=== PATIENT | female | born 1965 | race Caucasian/White ===

== ENCOUNTER → 2017-11-29 18:03 | Outpatient (CLI) | payer OTHER, SELFPAY ==
[2017-12-03 15:42] LABS: HPV Reflexed? NOT INDICATED
== END ==
PROVIDERS: Visit Provider Obstetrics & Gynecology
DX: Z12.4 Encounter for screening for malignant neoplasm of cervix (principal); Z12.72 Encounter for screening for malignant neoplasm of vagina
CPT/HCPCS: 88175; G0145

== ENCOUNTER 2017-12-17 20:19 | Observation (INO) | payer OTHER, SELFPAY ==
[2017-12-17 20:21] VITALS: BP 91/56; PULSE 72; RESP 18; TEMP 36.6; O2SAT 94; BMI 26.6
--- NOTE | 2017-12-17 21:12 | EKG12_ITS ---
Test Reason : SYNCOPE Blood Pressure : / mmHG Vent. Rate : 067 BPM Atrial Rate : 067 BPM P-R Int : 178 ms QRS Dur : 084 ms QT Int : 436 ms P-R-T Axes : 078 064 072 degrees QTc Int : 460 ms Normal sinus rhythm Low voltage QRS Anteroseptal [place], age undetermined Nonspecific T wave abnormality Borderline ECG Confirmed by ANTONIO MATTHEW, ALCIDES ([id number]), editorial cartoonist ERMA COSTA ([id number] on 12/20/2017 1:20:32 PM Referred By: DAJA
--- NOTE | 2017-12-17 21:16 | ED.DCSUM_ITS ---
- ER Visit Summary Date of Service: 12/17/17 Chief Complaint: Syncope History of Present Illness: The patient is a 52 F brought by private vehicle for syncopal episode occurring around 5 PM. Patient was doing yard work. States she felt fine. She is drinking fluids. Walking upstairs when she had lightheaded symptoms. Next thing she knew she was on the ground. The estimated 30 minutes. Denies any pain. She has been dealing with sinus congestion. States last time she had similar symptoms in May last year was admitted. She is found to have adrenal insufficiency was placed on Solu- Cortef. She was referred to endocrinology Dr. Zepeda, states this was secondary to infection. She was weaned off and finished in August. History of coronary disease on aspirin and Plavix. She is on acetazolamide secondary history of pseudotumor cerebra. No headache or visual changes. States that urinary frequency. This is more than normal. No dysuria. Physical Examination: General: Alert and oriented ?3, no acute distress HEENT: Normocephalic, atraumatic. Moist mucosa membranes Neck: supple, nontender. Cardiovascular: Regular rate and rhythm, no murmurs Respiratory: Normal breath sounds, symmetric, no distress Abdomen: Soft, nontender, nondistended Extremities: Nontender, no edema, pulses intact ?4 Neuro: no focal neurological deficits. Test Results: EKG sinus rate of [address] changes. T-wave inversions V1 to V4 flattening of V5 and V6. Troponin negative. Hemoglobin 14.2. Potassium 3.8. Creatinine 0.81. Urine no infection. Cortisol level pending. Emergency Department Course and Treatment: Patient EKG notes chronic changes from previous EKG. Due to low blood pressures given IV fluids. With urine frequency urine is obtained noted leukocytes however 10-25 squamous epithelial cells. Likely contaminant. Labs on his stable hemoglobin. Electrolytes were normal. After liter fluids blood pressure 88/54, map 65. Orthostatics were negative however upon standing her blood pressure was in the 70s. Due to her adrenal insufficiency history she was started on Solu-Cortef. Pending Cortisol at this time. Patient has been there with some sinus congestion. She is afebrile with a normal white count. Potentially stress from this infection causing additional secondary adrenal insufficiency. She was continued on IV fluids. I discussed with hospitalist, Dr. Hernandez for admission. Treatment Plan: [] Disposition: Admission Impression: 1. Syncope 2. Transient hypotension 3. History of adrenal insufficiency 4. Sinusitis This note was generated with [employer] dictation software. It may contain incorrect words, spelling, and punctuation that were not noted in review of the chart prior to signing ED Disposition - Plan for ED Patient: Disposition: Acute [facility] Chief Complaint: Syncope Diagnosis: Syncope, History of adrenal insufficiency, Transient hypotension, Sinusitis Referrals: Brooke Altamirano [Primary Care Provider] -
[2017-12-17 21:22] LABS: Absolute Lymphocyte Count 1.87 X10^3/ul (0.83-4.51); Absolute Neutrophil Count 4.9 X10^3/uL (2.0-7.7); Basophil# 0.03 X10^3/uL; Basophil% 0.4 % (0-1); Eosinophil# 0.11 X10^3/uL; Eosinophils% 1.5 % (0-5); Hematocrit 41.7 % (37-47); Hemoglobin 14.2 g/dl (12.0-15.0); Lymphocyte # 1.87 X10^3/ul (4.0); Lymphocyte % 25.2 % (19-41); Mean Corp Hgb Conc 34.1 g/gl (32-36); Mean Corpuscular Hgb 32.8 pg (27.0-32.0); Mean Corpuscular Volume 96.3 fL (81-99); Mean Platelet Vol. 10.2 fl (6.2-12.0); Monocyte# 0.48 X10^3/uL; Monocyte% 6.5 % (0-10); Neutrophil # 4.92 X10^3/uL (2.7-7.7); Neutrophil % 66.3 % (47-70); Platelet Count 235 K/mm3 (150-450); RBC Distribution Width CV 13.4 % (11.6-14.6); RBC Distribution Width SD 46.2 fl (35.1-43.9); Red Blood Count 4.33 M/mm3 (4.2-5.4); White Blood Count 7.4 K/mm3 (4.4-11.0)
[2017-12-17 21:23] LABS: POSITIVE COUNT NO; POSITIVE DIFFERENTIAL NO; POSITIVE MORPHOLOGY NO
[2017-12-17] MEDS: 0.9% Normal Saline 1,000 ML 1000 ML IV (21:30)
[2017-12-17 21:32] VITALS: BP 75/51; BP 86/53; BP 89/57; PULSE 62; PULSE 63; PULSE 71
[2017-12-17 21:33] VITALS: BP 75/51; PULSE 62; RESP 16; O2SAT 96
[2017-12-17 21:33] LABS: Anion Gap 8 (5-15); BUN 20 mg/dL (7-18); BUN/Creat Ratio 24.7 RATIO (10-20); Calcium,Total 8.7 mg/dL (8.5-10.1); Chloride 112 mmol/L (98-107); Creatinine, Serum 0.81 mg/dL (0.55-1.02); EST Glomerular Filtration Rate 79 mL/min (>60); Est Glom Filt Rate - Afr Amer 96 mL/min (>60); Estimated Creatinine Clearance 70.95 ml/min; Glucose 150 mg/dL (74-106); Potassium 3.8 mmol/L (3.5-5.1); Sodium Level 142 mmol/L (136-145)
[2017-12-17 22:20] VITALS: BP 95/58; PULSE 60; RESP 16; O2SAT 98
[2017-12-17 22:22] LABS: Bacteria 0 SEEN /hpf (None Seen); Mucous, Urine 0 SEEN /hpf (<or=2+); Red Blood Cells-Urine 0 SEEN /hpf (0-5)
[2017-12-17 22:26] LABS: Color, Urine Yellow (Yellow); Glucose, Dipstick Normal (Normal); Ketone-Dipstick Negative (Negative); Leukocyte Esterase-Dipstick 100 /ul (Negative); Nitrite-Dipstick Negative (Negative); Occult Blood-Urine Negative /ul (Negative); Protein-Dipstick Negative (Negative); Specific Gravity, Urine 1.015 (1.002-1.030); Urine Bilirubin Dipstick Negative (Negative); Urine Clarity Clear (Clear); Urine Urobilinogen 1 mg/dl (Normal); Urine pH 6.5 (5.0 - 8.0)
[2017-12-17 22:31] LABS: Squamous Epithelial Cells - UA 10-25 SEEN /hpf (5-10); White Blood Cells 0-5 SEEN /hpf (0-5)
--- NOTE | 2017-12-17 23:30 | PCM.HP.STD ---
Problem List (1) Syncope Status: Acute (2) COPD (chronic obstructive pulmonary disease) Status: Chronic (3) Atherosclerosis of coronary artery of [place] heart without angina pectoris Status: Chronic Comment: [id number] LAD @ [facility] (4) HTN (hypertension) Status: Chronic Qualifiers: (5) HLD (hyperlipidemia) Status: Chronic Qualifiers: (6) RAH (obstructive sleep apnea) Status: Chronic Comment: This patient is using and benefiting from current BiPAP settings. No change in prescription, with the exception of removing her backup rate. The patient tolerates the settings much more with backup rate removed. No indication for titration study at this time. Follow-up with Dr. Burks in 3 months. (7) Pseudotumor cerebri Status: Chronic History of Present Illness Date of Admission: 12/17/17 Chief Complaint: Syncope. The patient is a 52 year old F with past medical history as mentioned above presented to the emergency room because of syncope. This happened around 5 PM today at home when she was standing, felt short of breath and dizzy, associated with nausea and she passed out. She found herself on the floor after around 30 minutes. She denied chest pain, palpitation before this episode of syncope. She complained of pain on the left maxillary sinus and her left cheek that has been going on for almost 2 weeks, dull aching pain, not radiating, mild pain, 3-4 out of 10 in severity, associated with sinus congestion which has been chronic. She denies fever chills. She denied abdominal pain or vomiting. She denied urinary symptoms. She has history of CAD status post stent, EKG revealed normal sinus rhythm without evidence of acute ischemic changes and she has been on aspirin, Plavix and beta-blockers. She had a history of pseudotumor cerebri and she has been on Diamox and has been following up with neurology as outpatient. She had a history of obstructive sleep apnea and she has been on CPAP at home. Back in May,, she was admitted for dizziness and near syncope, found to have adrenal insufficiency and she was discharged on hydrocortisone tablets. She seen an agricultural produce packer after her discharge who weaned her off and then discontinue hydrocortisone tablet because that agricultural produce packer thinks that patient was adrenal insufficient because of acute illness. Patient mentioned that she has been doing fine since she was taken off hydrocortisone tablets on August,. In the emergency department, she was afebrile, heart rate was stable, blood pressure was as low as 75/51. Her pulse ox maintained on room air. Her routine blood work was unremarkable. EKG revealed normal sinus rhythm without evidence of acute ischemic changes. Troponin is negative. Urine analysis revealed no evidence for acute cystitis. She is being admitted for syncopal episode likely due to vasovagal syncope secondary to hypotension which could be due to adrenal insufficiency. Past Medical History Past Medical History (Chronic Problems): Chronic Problems (Last Updated 12/17/17 @ 23:44 by Colby Hernandez MD) Tobacco dependence in remission (Chronic) Ischemic cardiomyopathy (Chronic) COPD (chronic obstructive pulmonary disease) (Chronic) History of coronary artery stent placement (Chronic ~06/27/16) MAX-MPS-Cpow LAD @ [facility] Atherosclerosis of coronary artery of [place] without angina pectoris (Chronic) [id number] LAD @ [facility] Adrenal insufficiency (Chronic) Tobacco abuse (Chronic) 11 minute conversation with the patient regarding smoking cessation. The patient reports that she has been successful with smoking cessation using Chantix in the past. She is motivated and would like to trial Chantix again. Prescription has been provided. Patient has been encouraged to contact the office with any questions or problems. Follow-up with Dr. Burks in 3 months. HTN (hypertension) (Chronic) HLD (hyperlipidemia) (Chronic) RAH (obstructive sleep apnea) (Chronic) This patient is using and benefiting from current BiPAP settings. No change in prescription, with the exception of removing her backup rate. The patient tolerates the settings much more with backup rate removed. No indication for titration study at this time. Follow-up with Dr. Burks in 3 months. Obesity (BMI 30.0-34.9) (Chronic) Pseudotumor cerebri (Chronic) Allergies Iodinated Contrast- Oral and IV Dye [CONTRASTS] Allergy (Verified 12/17/17 20:23) Anaphylaxis niacin Allergy (Verified 12/17/17 20:23) Shortness of breath carbamazepine [From Tegretol] Adverse Reaction (Verified 12/17/17 20:23) Other Home Medications: Ambulatory Orders Medication Instructions Recorded Aspirin [Aspirin, Baby] 81 mg PO DAILY@0800 10/03/16 Clopidogrel Bisulfate [Plavix] 75 mg PO DAILY 05/14/17 Albuterol Sulfate [Ventolin Hfa] 2 puff INHALATION Q4H PRN PRN 05/15/17 pravastatin 20 mg tablet 20 mg PO QHS 09/18/17 umeclidinium 62.5 mcg-vilanterol 1 inh INHALATION Q24H #1 device 10/17/17 25 mcg/actuation powdr for inhalation AcetaAZOLAMIDE [Diamox] 250 mg PO TID 12/17/17 Fluticasone 0.05% [Flonase Nasal 1 spray NASAL DAILY 12/17/17 [place]] Omeprazole [Prilosec] 20 mg PO DAILY 12/18/17 Sennosides/Docusate Sodium 1 tab PO DAILY 12/18/17 [Senna-Docusate Sodium Tablet] Surgical History: tonsillectomy, - - Bilateral tubal ligation. Psychiatric History: No pertinent psych hx ALTERATIONS MANAGER History: No pertinent ALTERATIONS MANAGER history Smoking Status: Current every day smoker Tobacco Use: Cigarettes Alcohol: None Drugs: None - *Family History Maternal History Items: - - Notes a maternal family history of autoimmune disease, thyroid disease, colon cancer in addition to a heart attack age 50. Paternal History Items: - - Notes a paternal family history of autoimmune disease, hypertension, heart disease with OH age 38, CKD, Lung disease. Review of Systems Constitutional: Reports: Weakness. Denies: Anorexia, Chills, Fever Eyes: Denies: Blurred vision, Double vision, Drainage, Redness HEENT: Reports: Sinus Congestion. Denies: Difficulty Hearing, Ear Pain, Eye Pain, Nasal bleeding, Sore Throat Cardiovascular: Reports: Syncope. Denies: Chest Pain, Chest Pressure, Chest Tightness, Palpitations Respiratory: Reports: Shortness of Breath. Denies: Cough, Pleuritic Pain, Sputum production, Wheezing Gastrointestinal: Reports: Nausea. Denies: Abdominal Pain, Constipation, Diarrhea, Vomiting Genitourinary: Denies: Dysuria, Frequency, Hematuria Musculoskeletal: Denies: Arm Pain, Back Pain, Foot Pain Skin: Denies: Dryness, Rash Neurological: Reports: Headaches. Denies: Balance problems, Double vision, Change in Speech, Slurred speech, Confusion, Incoordination, Numbness, Tingling Psychiatric: Reports: Anxiety, Depression Endocrine: Reports: Change in Body Habitus, Polydipsia VTE Information - Inpt Only VTE Present on Admission: No VTE Mechan Device Prophylaxis: None VTE Pharm Prophylaxis ordered?: No Patient Problems: Active and Suspected Problems (Last Updated 12/17/17 @ 23:44 by Colby Hernandez MD) History of adrenal insufficiency (Acute) Syncope (Acute) Transient hypotension (Acute) Sinusitis (Acute) - Physical Exam General: Alert, Oriented x3, Cooperative, No apparent distress HEENT: Atraumatic, PERRLA, EOMI Oral: Moist Mucosa, No Gingival or Mucosal Lesions/ Ulcerations Neck: Supple, No JVD, Negative Carotid Bruits, Trachea Midline, Thyroid Normal Size and Texture Lungs: Clear to auscultation, No rhonchi, No wheeze, No rales, Diminished Cardiovascular: Regular rate, Regular Rhythm, Normal S1, Normal S2, No murmurs, PMI Normal Abdomen: Bowel Sounds Present, Soft, Non Tender, Non-Distended, No Hepato-splenomegaly Extremities: No clubbing, No cyanosis, No edema Skin: No rashes, No breakdown Lymphatic: No Cervical, Supraclavicular, or Inguinal Adenopathy Neurological: Cranial nerves II-XII grossly intact, Motor Exam 5/5 strength throughout Psych/Mental Status: Normal Affect, Appropriate, Alert and oriented to time, place, person, mood and affect Vital Signs Temp Pulse Resp BP Pulse Ox 97.9 F 60 16 95/58 L 98 12/17/17 20:21 12/17/17 22:20 12/17/17 22:20 12/17/17 22:20 12/17/17 22:20 Oxygen Delivery Method Room Air Weight: 155 lb Body Mass Index (BMI) 26.6 Laboratory Tests Past 24 Hrs 12/17/17 12/17/17 12/17/17 20:50 20:50 20:50 WBC 7.4 RBC 4.33 Hgb 14.2 Hct 41.7 MCV 96.3 MCH 32.8 H MCHC 34.1 RDW 13.4 RDW Differential 46.2 H Plt Count 235 MPV 10.2 Immature Gran % (Auto) 0.100 Neut % (Auto) 66.3 Lymph % (Auto) 25.2 [place] % (Auto) 6.5 Eos % (Auto) 1.5 Baso % (Auto) 0.4 Absolute Neuts (auto) 4.9 Absolute Lymphs (auto) 1.87 Total Counted Not Reportable Sodium 142 Potassium 3.8 Chloride 112 H Carbon Dioxide 22.0 Anion Gap 8 BUN 20 H Creatinine 0.81 Estim Creat Clear Calc 70.95 Est GFR (MDRD) Af Amer 96 Est GFR (MDRD) Non-Af 79 BUN/Creatinine Ratio 24.7 H Glucose 150 H Calcium 8.7 Troponin I < 0.02 Cortisol Urine Color Urine Clarity Urine pH Ur Specific Loyal Urine Protein Urine Glucose (UA) Urine Ketones Urine Occult Blood Urine Nitrite Urine Bilirubin Urine Urobilinogen Ur Leukocyte Esterase Urine RBC Urine WBC Ur Squamous Epith Cells Urine Bacteria Urine Mucus 12/17/17 12/17/17 21:40 22:15 WBC RBC Hgb Hct MCV MCH MCHC RDW RDW Differential Plt Count MPV Immature Gran % (Auto) Neut % (Auto) Lymph % (Auto) [place] % (Auto) Eos % (Auto) Baso % (Auto) Absolute Neuts (auto) Absolute Lymphs (auto) Total Counted Sodium Potassium Chloride Carbon Dioxide Anion Gap BUN Creatinine Estim Creat Clear Calc Est GFR (MDRD) Af Amer Est GFR (MDRD) Non-Af BUN/Creatinine Ratio Glucose Calcium Troponin I Cortisol Pending Urine Color Yellow Urine Clarity Clear Urine pH 6.5 Ur Specific Loyal 1.015 Urine Protein Negative Urine Glucose (UA) Normal Urine Ketones Negative Urine Occult Blood Negative Urine Nitrite Negative Urine Bilirubin Negative Urine Urobilinogen 1 H Ur Leukocyte Esterase 100 H Urine RBC 0 SEEN Urine WBC 0-5 SEEN Ur Squamous Epith Cells 10-25 SEEN Urine Bacteria 0 SEEN Urine Mucus 0 SEEN Assessment/Plan Active and Suspected Problems (Last Updated 12/17/17 @ 23:44 by Colby Hernandez MD) History of adrenal insufficiency (Acute) Syncope (Acute) Transient hypotension (Acute) Sinusitis (Acute) This is a 52 years old female patient presented to the emergency department because of syncope, found to have hypotension, had diagnosis of adrenal insufficiency back on May,, was on hydrocortisone tablets that was discontinued by endocrinology assuming that she has adrenal insufficiency secondary to acute illness that time. #1 syncope: Probably vasovagal syncope secondary to hypotension. EKG revealed normal sinus rhythm without evidence of acute ischemic changes or cardiac arrhythmias. Blood pressure was low upon arrival to ER, improved after IV fluids. Other vital signs are stable. Plan: Admit to PCU, cardiac monitoring, IV fluids, IV hydrocortisone, repeat CBC and CMP tomorrow morning, cortisol is pending, PT OT evaluation and treatment. #2 hypotension: This is attributed to adrenal insufficiency. Patient was diagnosed with adrenal insufficiency back in May,, was discharged on hydrocortisone that was discontinued by endocrinology assuming that this adrenal insufficiency is transient because of acute illness at that time. Plan: IV fluids, IV hydrocortisone, follow cortisol level. #3 probable acute sinusitis: Based on symptoms of sinus pain and congestion as well as headache. She is afebrile, no leukocytosis. Plan for x-ray nasal sinuses, start empiric Augmentin. #4 suspected adrenal insufficiency: This is based on her previous diagnosis back on May,. At this time, no evidence of active significant acute illness except probable mild acute sinusitis. She is afebrile, white count is normal. She is not tachycardic, pulse ox is maintained. Plan: Start IV hydrocortisone, chest x-ray, x-ray nasal sinus, nasal swab for influenza a and B. Urinalysis was negative for acute cystitis. #5 CAD status post stents: EKG reviewed, no acute changes. Troponin is negative. Continue aspirin and Plavix as well as statins. She is not on any beta blockers because of hypotension. #6 hypertension: Pressure has been low and she has been off all antihypertensive medications including beta-blockers. #7 pseudotumor cerebri: Continue Diamox. #8 COPD: Clinically stable, pulse ox is maintained on room air. Plan for DuoNeb every 6 hours, albuterol as needed. #9 obstructive sleep apnea: Continue CPAP at night. #10 hyperlipidemia: Continue statins. #11 DVT prophylaxis: Low risk patient, no prophylaxis indicated. This note was generated with [employer] dictation software. It may contain incorrect words, spelling, and punctuation that were not noted in checking the note before signing. Code Visit Inpatient E&M: 65559 Init Hosp L3
--- NOTE | 2017-12-17 23:36 | HP.PCM_ITS ---
Problem List (1) Syncope Status: Acute (2) COPD (chronic obstructive pulmonary disease) Status: Chronic (3) Atherosclerosis of coronary artery of [place] without angina pectoris Status: Chronic Comment: MDF-ELI-Goae LAD @ [facility] (4) HTN (hypertension) Status: Chronic Qualifiers: (5) HLD (hyperlipidemia) Status: Chronic Qualifiers: (6) RAH (obstructive sleep apnea) Status: Chronic Comment: This patient is using and benefiting from current BiPAP settings. No change in prescription, with the exception of removing her backup rate. The patient tolerates the settings much more with backup rate removed. No indication for titration study at this time. Follow-up with Dr. Burks in 3 months. (7) Pseudotumor cerebri Status: Chronic History of Present Illness Date of Admission: 12/17/17 Chief Complaint: Syncope. The patient is a 52 year old F with past medical history as mentioned above presented to the emergency room because of syncope. This happened around 5 PM today at home when she was standing, felt short of breath and dizzy, associated with nausea and she passed out. She found herself on the floor after around 30 minutes. She denied chest pain, palpitation before this episode of syncope. She complained of pain on the left maxillary sinus and her left cheek that has been going on for almost 2 weeks, dull aching pain, not radiating, mild pain, 3- 4 out of 10 in severity, associated with sinus congestion which has been chronic. She denies fever chills. She denied abdominal pain or vomiting. She denied urinary symptoms. She has history of CAD status post stent, EKG revealed normal sinus rhythm without evidence of acute ischemic changes and she has been on aspirin, Plavix and beta-blockers. She had a history of pseudotumor cerebri and she has been on Diamox and has been following up with neurology as outpatient. She had a history of obstructive sleep apnea and she has been on CPAP at home. Back in May,, she was admitted for dizziness and near syncope, found to have adrenal insufficiency and she was discharged on hydrocortisone tablets. She seen an gut dropper after her discharge who weaned her off and then discontinue hydrocortisone tablet because that gut dropper thinks that patient was adrenal insufficient because of acute illness. Patient mentioned that she has been doing fine since she was taken off hydrocortisone tablets on August,. In the emergency department , she was afebrile, heart rate was stable, blood pressure was as low as 75/51. Her pulse ox maintained on room air. Her routine blood work was unremarkable. EKG revealed normal sinus rhythm without evidence of acute ischemic changes. Troponin is negative. Urine analysis revealed no evidence for acute cystitis. She is being admitted for syncopal episode likely due to vasovagal syncope secondary to hypotension which could be due to adrenal insufficiency. Past Medical History Past Medical History (Chronic Problems): Chronic Problems (Last Updated 12/17/17 @ 23:44 by Colby Hernandez MD) Tobacco dependence in remission (Chronic) Ischemic cardiomyopathy (Chronic) COPD (chronic obstructive pulmonary disease) (Chronic) History of coronary artery stent placement (Chronic ~06/27/16) HVX-INO-Pbfw LAD @ [facility] Atherosclerosis of coronary artery of [place] heart without angina pectoris ( Chronic) UFL-SBX-Hesb LAD @ [facility] Adrenal insufficiency (Chronic) Tobacco abuse (Chronic) 11 minute conversation with the patient regarding smoking cessation. The patient reports that she has been successful with smoking cessation using Chantix in the past. She is motivated and would like to trial Chantix again. Prescription has been provided. Patient has been encouraged to contact the office with any questions or problems. Follow-up with Dr. Burks in 3 months. HTN (hypertension) (Chronic) HLD (hyperlipidemia) (Chronic) RAH (obstructive sleep apnea) (Chronic) This patient is using and benefiting from current BiPAP settings. No change in prescription, with the exception of removing her backup rate. The patient tolerates the settings much more with backup rate removed. No indication for titration study at this time. Follow-up with Dr. Burks in 3 months. Obesity (BMI 30.0-34.9) (Chronic) Pseudotumor cerebri (Chronic) Allergies Iodinated Contrast- Oral and IV Dye [CONTRASTS] Allergy (Verified 12/17/17 20:23 ) Anaphylaxis niacin Allergy (Verified 12/17/17 20:23) Shortness of breath carbamazepine [From Tegretol] Adverse Reaction (Verified 12/17/17 20:23) Other Home Medications: Ambulatory Orders Medication Instructions Recorded Aspirin [Aspirin, Baby] 81 mg PO DAILY@0800 10/03/16 Clopidogrel Bisulfate [Plavix] 75 mg PO DAILY 05/14/17 Albuterol Sulfate [Ventolin Hfa] 2 puff INHALATION Q4H PRN PRN 05/15/17 pravastatin 20 mg tablet 20 mg PO QHS 09/18/17 umeclidinium 62.5 mcg-vilanterol 1 inh INHALATION Q24H #1 device 10/17/17 25 mcg/actuation powdr for inhalation AcetaAZOLAMIDE [Diamox] 250 mg PO TID 12/17/17 Fluticasone 0.05% [Flonase Nasal 1 spray NASAL DAILY 12/17/17 Ernest] Omeprazole [Prilosec] 20 mg PO DAILY 12/18/17 Sennosides/Docusate Sodium 1 tab PO DAILY 12/18/17 [Senna-Docusate Sodium Tablet] Surgical History: tonsillectomy, - - Bilateral tubal ligation. 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 Paternal History Items: - - Notes a paternal family history of autoimmune disease, hypertension, heart disease with [place] age 38, CKD, Lung disease. Review of Systems Constitutional: Reports: Weakness. Denies: Anorexia, Chills, Fever Eyes: Denies: Blurred vision, Double vision, Drainage, Redness HEENT: Reports: Sinus Congestion. Denies: Difficulty Hearing, Ear Pain, Eye Pain, Nasal bleeding, Sore Throat Cardiovascular: Reports: Syncope. Denies: Chest Pain, Chest Pressure, Chest Tightness, Palpitations Respiratory: Reports: Shortness of Breath. Denies: Cough, Pleuritic Pain, Sputum production, Wheezing Gastrointestinal: Reports: Nausea. Denies: Abdominal Pain, Constipation, Diarrhea, Vomiting Genitourinary: Denies: Dysuria, Frequency, Hematuria Musculoskeletal: Denies: Arm Pain, Back Pain, Foot Pain Skin: Denies: Dryness, Rash Neurological: Reports: Headaches. Denies: Balance problems, Double vision, Change in Speech, Slurred speech, Confusion, Incoordination, Numbness, Tingling Psychiatric: Reports: Anxiety, Depression Endocrine: Reports: Change in Body Habitus, Polydipsia VTE Information - Inpt Only VTE Present on Admission: No VTE Mechan Device Prophylaxis: None VTE Pharm Prophylaxis ordered?: No Patient Problems: Active and Suspected Problems (Last Updated 12/17/17 @ 23:44 by Colby Hernandez MD) History of adrenal insufficiency (Acute) Syncope (Acute) Transient hypotension (Acute) Sinusitis (Acute) - Physical Exam General: Alert, Oriented x3, Cooperative, No apparent distress HEENT: Atraumatic, PERRLA, EOMI Oral: Moist Mucosa, No Gingival or Mucosal Lesions/ Ulcerations Neck: Supple, No JVD, Negative Carotid Bruits, Trachea Midline, Thyroid Normal Size and Texture Lungs: Clear to auscultation, No rhonchi, No wheeze, No rales, Diminished Cardiovascular: Regular rate, Regular Rhythm, Normal S1, Normal S2, No murmurs, PMI Normal Abdomen: Bowel Sounds Present, Soft, Non Tender, Non-Distended, No Hepato- splenomegaly Extremities: No clubbing, No cyanosis, No edema Skin: No rashes, No breakdown Lymphatic: No Cervical, Supraclavicular, or Inguinal Adenopathy Neurological: Cranial nerves II-XII grossly intact, Motor Exam 5/5 strength throughout Psych/Mental Status: Normal Affect, Appropriate, Alert and oriented to time, place, person, mood and affect Vital Signs Temp Pulse Resp BP Pulse Ox 97.9 F 60 16 95/58 L 98 12/17/17 20:21 12/17/17 22:20 12/17/17 22:20 12/17/17 22:20 12/17/17 22:20 Oxygen Delivery Method Room Air Weight: 155 lb Body Mass Index (BMI) 26.6 Laboratory Tests Past 24 Hrs 12/17/17 12/17/17 12/17/17 20:50 20:50 20:50 WBC 7.4 RBC 4.33 Hgb 14.2 Hct 41.7 MCV 96.3 MCH 32.8 H MCHC 34.1 RDW 13.4 RDW Differential 46.2 H Plt Count 235 MPV 10.2 Immature Gran % (Auto) 0.100 Neut % (Auto) 66.3 Lymph % (Auto) 25.2 Osborne % (Auto) 6.5 Eos % (Auto) 1.5 Baso % (Auto) 0.4 Absolute Neuts (auto) 4.9 Absolute Lymphs (auto) 1.87 Total Counted Not Reportable Sodium 142 Potassium 3.8 Chloride 112 H Carbon Dioxide 22.0 Anion Gap 8 BUN 20 H Creatinine 0.81 Estim Creat Clear Calc 70.95 Est GFR (MDRD) Af Amer 96 Est GFR (MDRD) Non-Af 79 BUN/Creatinine Ratio 24.7 H Glucose 150 H Calcium 8.7 Troponin I < 0.02 Cortisol Urine Color Urine Clarity Urine pH Ur Specific [place] Urine Protein Urine Glucose (UA) Urine Ketones Urine Occult Blood Urine Nitrite Urine Bilirubin Urine Urobilinogen Ur Leukocyte Esterase Urine RBC Urine WBC Ur Squamous Epith Cells Urine Bacteria Urine Mucus 12/17/17 12/17/17 21:40 22:15 WBC RBC Hgb Hct MCV MCH MCHC RDW RDW Differential Plt Count MPV Immature Gran % (Auto) Neut % (Auto) Lymph % (Auto) [place] % (Auto) Eos % (Auto) Baso % (Auto) Absolute Neuts (auto) Absolute Lymphs (auto) Total Counted Sodium Potassium Chloride Carbon Dioxide Anion Gap BUN Creatinine Estim Creat Clear Calc Est GFR (MDRD) Af Amer Est GFR (MDRD) Non-Af BUN/Creatinine Ratio Glucose Calcium Troponin I Cortisol Pending Urine Color Yellow Urine Clarity Clear Urine pH 6.5 Ur Specific [place] 1.015 Urine Protein Negative Urine Glucose (UA) Normal Urine Ketones Negative Urine Occult Blood Negative Urine Nitrite Negative Urine Bilirubin Negative Urine Urobilinogen 1 H Ur Leukocyte Esterase 100 H Urine RBC 0 SEEN Urine WBC 0-5 SEEN Ur Squamous Epith Cells 10-25 SEEN Urine Bacteria 0 SEEN Urine Mucus 0 SEEN Assessment/Plan Active and Suspected Problems (Last Updated 12/17/17 @ 23:44 by Colby Hernandez MD) History of adrenal insufficiency (Acute) Syncope (Acute) Transient hypotension (Acute) Sinusitis (Acute) This is a 52 years old female patient presented to the emergency department because of syncope, found to have hypotension, had diagnosis of adrenal insufficiency back on May,, was on hydrocortisone tablets that was discontinued by endocrinology assuming that she has adrenal insufficiency secondary to acute illness that time. #1 syncope: Probably vasovagal syncope secondary to hypotension. EKG revealed normal sinus rhythm without evidence of acute ischemic changes or cardiac arrhythmias. Blood pressure was low upon arrival to ER, improved after IV fluids. Other vital signs are stable. Plan: Admit to PCU, cardiac monitoring, IV fluids, IV hydrocortisone, repeat CBC and CMP tomorrow morning, cortisol is pending, PT OT evaluation and treatment. #2 hypotension: This is attributed to adrenal insufficiency. Patient was diagnosed with adrenal insufficiency back in May,, was discharged on hydrocortisone that was discontinued by endocrinology assuming that this adrenal insufficiency is transient because of acute illness at that time. Plan : IV fluids, IV hydrocortisone, follow cortisol level. #3 probable acute sinusitis: Based on symptoms of sinus pain and congestion as well as headache. She is afebrile, no leukocytosis. Plan for x-ray nasal sinuses, start empiric Augmentin. #4 suspected adrenal insufficiency: This is based on her previous diagnosis back on May,. At this time, no evidence of active significant acute illness except probable mild acute sinusitis. She is afebrile, white count is normal. She is not tachycardic, pulse ox is maintained. Plan: Start IV hydrocortisone, chest x-ray, x-ray nasal sinus, nasal swab for influenza a and B. Urinalysis was negative for acute cystitis. #5 CAD status post stents: EKG reviewed, no acute changes. Troponin is negative. Continue aspirin and Plavix as well as statins. She is not on any beta blockers because of hypotension. #6 hypertension: Pressure has been low and she has been off all antihypertensive medications including beta-blockers. #7 pseudotumor cerebri: Continue Diamox. #8 COPD: Clinically stable, pulse ox is maintained on room air. Plan for DuoNeb every 6 hours, albuterol as needed. #9 obstructive sleep apnea: Continue CPAP at night. #10 hyperlipidemia: Continue statins. #11 DVT prophylaxis: Low risk patient, no prophylaxis indicated. This note was generated with [employer] dictation software. It may contain incorrect words, spelling, and punctuation that were not noted in checking the note before signing. Code Visit Inpatient E&M: 84304 Init Hosp L3
[2017-12-17] MEDS: Hydrocortisone Sod Succinate 100 MG/2 ML Vial IV (23:38)
[2017-12-17] MEDS: 0.9% Normal Saline 1,000 ML 150 ML IV (23:39)
[2017-12-17 23:42] VITALS: BP 91/59; PULSE 63; RESP 16; O2SAT 97
[2017-12-17 23:43] VITALS: BP 91/59; PULSE 60; RESP 16; O2SAT 97
[2017-12-18] VITALS (13 sets, daily range): BP systolic 84–105; BP diastolic 40–66; PULSE 56–75; RESP 16; TEMP 36.4–37; O2SAT 92–95; BMI 26.6; BMI 27.5
[2017-12-18] MEDS: AcetaZOLAMIDE 250 MG Tablet PO ×2 (01:01→09:02)
--- NOTE | 2017-12-18 01:05 | RAD_ITS ---
STUDY: X-RAY CHEST REASON FOR EXAM: Female, 52 years old. TECHNIQUE: 1 view COMPARISON: May 14, 2017 FINDINGS: The lungs are clear and expanded. There is no demonstrated pleural abnormality. Normal size heart. Normal mediastinum and judy. Normal visualized pulmonary arteries. Normal visualized aortic arch and descending thoracic aorta. Degenerative changes of thoracic spine Normal visualized ribs, clavicles, and shoulders. There is no demonstrated abnormality of the visualized soft tissue structures of the upper abdomen. RAD/Chest 1 View (Portable) IMPRESSION: No acute findings in the lungs Electronically Signed: Roc Silva, at 4:44 EDT Tel , Service support ,
--- NOTE | 2017-12-18 01:05 | RAD_ITS ---
STUDY: X-RAY - PARANASAL SINUSES REASON FOR EXAM: Female, 52 years old. Pain TECHNIQUE: 3 view(s) of the paranasal sinuses were obtained. COMPARISON: None. FINDINGS: Normal visualized frontal, maxillary, ethmoidal and sphenoid sinuses. Normal visualized facial bones. The soft tissue structures are unremarkable. RAD/Sinuses min 3 Views IMPRESSION: Normal x-rays of the paranasal sinuses. No acute sinusitis Electronically Signed: Roc Silva, at 4:44 EDT Tel , Service support ,
[2017-12-18] MEDS: Acetaminophen 325 MG Tablet 650 MG PO (03:58)
[2017-12-18] MEDS: Hydrocortisone Sod Succinate 100 MG/2 ML Vial 50 MG IV (05:54)
[2017-12-18] MEDS: 0.9% NaCl Peripheral Flush Adult/Peds IV (05:55)
[2017-12-18 06:05] LABS: Absolute Lymphocyte Count 1.24 X10^3/ul (0.83-4.51); Absolute Neutrophil Count 4.2 X10^3/uL (2.0-7.7); Basophil# 0.01 X10^3/uL; Basophil% 0.2 % (0-1); Eosinophil# 0.04 X10^3/uL; Eosinophils% 0.7 % (0-5); Hematocrit 40.7 % (37-47); Hemoglobin 13.1 g/dl (12.0-15.0); Lymphocyte # 1.24 X10^3/ul (4.0); Lymphocyte % 21.8 % (19-41); Mean Corp Hgb Conc 32.2 g/gl (32-36); Mean Corpuscular Hgb 31.4 pg (27.0-32.0); Mean Corpuscular Volume 97.6 fL (81-99); Mean Platelet Vol. 10.1 fl (6.2-12.0); Monocyte# 0.19 X10^3/uL; Monocyte% 3.3 % (0-10); Neutrophil # 4.19 X10^3/uL (2.7-7.7); Neutrophil % 73.8 % (47-70); Platelet Count 225 K/mm3 (150-450); RBC Distribution Width CV 13.8 % (11.6-14.6); RBC Distribution Width SD 49.5 fl (35.1-43.9); Red Blood Count 4.17 M/mm3 (4.2-5.4); White Blood Count 5.7 K/mm3 (4.4-11.0)
[2017-12-18 06:11] LABS: POSITIVE COUNT NO; POSITIVE DIFFERENTIAL NO; POSITIVE MORPHOLOGY NO
[2017-12-18 06:26] LABS: ALB/GLOB Ratio 1.1 RATIO (0.9-2.4); AST(SGOT) 9 U/L (15-37); Alanine Aminotransfer ALT/SGPT 22 U/L (13-56); Albumin, Serum 3.3 g/dL (3.2-5.0); Alkaline Phosphatase 48 U/L (45-117); Anion Gap 7 (5-15); BUN 15 mg/dL (7-18); BUN/Creat Ratio 24.6 RATIO (10-20); Calcium,Total 8.2 mg/dL (8.5-10.1); Chloride 117 mmol/L (98-107); Creatinine, Serum 0.61 mg/dL (0.55-1.02); EST Glomerular Filtration Rate 110 mL/min (>60); Est Glom Filt Rate - Afr Amer 133 mL/min (>60); Estimated Creatinine Clearance 94.22 ml/min; Glucose 124 mg/dL (74-106); Potassium 3.6 mmol/L (3.5-5.1); Protein, Total 6.3 g/dL (6.4-8.2); Sodium Level 145 mmol/L (136-145)
[2017-12-18] MEDS: Ipratropium/Albuterol Sulfate 3 ML AMPUL.NEB INHALATION (07:08)
[2017-12-18] MEDS: Clopidogrel Bisulfate 75 MG Tablet PO (09:04)
[2017-12-18] MEDS: Aspirin 81 MG TAB.CHEW PO (09:04)
[2017-12-18] MEDS: Fluticasone 0.05% 1 SPRAY NASAL.SRY NASAL (09:04)
[2017-12-18] MEDS: Amox/Clavulanate 875 MG Tablet PO (09:04)
--- NOTE | 2017-12-18 10:37 | PCM.DC ---
- Discharge Diagnoses Current Active Problems: Current Active and Chronic Problems (Last Updated 12/17/17 @ 23:44 by Colby Hernandez MD) History of adrenal insufficiency (Acute) Syncope (Acute) Transient hypotension (Acute) Sinusitis (Acute) You will use the following diet at home:: No restrictions Discharge Activity: Return to Normal Activity Allergies/Adverse Reactions: Allergies atorvastatin [From Lipitor] Allergy (Verified 12/18/17 00:12) Pain in joints Iodinated Contrast- Oral and IV Dye [CONTRASTS] Allergy (Verified 12/18/17 00:12) Anaphylaxis niacin Allergy (Verified 12/18/17 00:12) Shortness of breath carbamazepine [From Tegretol] Adverse Reaction (Verified 12/18/17 00:12) Other Medications to take at Discharge Aspirin [Aspirin, Baby] 81 mg PO DAILY@0800 10/03/16 Clopidogrel Bisulfate [Plavix] 75 mg PO DAILY 05/14/17 Albuterol Sulfate [Ventolin Hfa] 2 puff INHALATION Q4H PRN PRN 05/15/17 pravastatin 20 mg tablet 20 mg PO QHS 09/18/17 umeclidinium 62.5 mcg-vilanterol 25 mcg/actuation powdr for inhalation 1 inh INHALATION Q24H #1 device 10/17/17 AcetaAZOLAMIDE [Diamox] 250 mg PO TID 12/17/17 Fluticasone 0.05% [Flonase Nasal [place]] 1 spray NASAL DAILY 12/17/17 Amox/Clavulanate Tablet [Augmentin Tablet] 875 mg PO BIDCM #20 tab 12/18/17 Omeprazole [Prilosec] 20 mg PO DAILY 12/18/17 Sennosides/Docusate Sodium [Senna-Docusate Sodium Tablet] 1 tab PO DAILY 12/18/17 The following prescriptions were given: Amox/Clavulanate Tablet [Augmentin Tablet] 875 mg PO BIDCM #20 tab Primary Care Physician: Brooke Altamirano [Primary Care Provider] - Please follow up with your Primary Care Physician in: in 3-5 days Proposed Discharge Date: 12/18/17
--- NOTE | 2017-12-18 10:41 | PCM.DC.SUM ---
Discharge Date and Diagnosis Date of Admission: 12/17/17 Date of Discharge: 12/18/17 - Primary Discharge Diagnosis Active and Suspected Problems (Last Updated 12/17/17 @ 23:44 by Colby Heranndez MD) Syncope (Acute) Transient hypotension (Acute) Sinusitis (Acute) - Secondary Discharge Diagnosis Chronic Problems (Last Updated 12/17/17 @ 23:44 by Colby Hernandez MD) Tobacco dependence in remission (Chronic) Ischemic cardiomyopathy (Chronic) COPD (chronic obstructive pulmonary disease) (Chronic) History of coronary artery stent placement (Chronic ~06/27/16) ERM-DOF-Kimi LAD @ [facility] Atherosclerosis of coronary artery of [place] heart without angina pectoris (Chronic) DPC-CSL-Vphy LAD @ [facility] Adrenal insufficiency (Chronic) Tobacco abuse (Chronic) 11 minute conversation with the patient regarding smoking cessation. The patient reports that she has been successful with smoking cessation using Chantix in the past. She is motivated and would like to trial Chantix again. Prescription has been provided. Patient has been encouraged to contact the office with any questions or problems. Follow-up with Dr. Burks in 3 months. HTN (hypertension) (Chronic) HLD (hyperlipidemia) (Chronic) RAH (obstructive sleep apnea) (Chronic) This patient is using and benefiting from current BiPAP settings. No change in prescription, with the exception of removing her backup rate. The patient tolerates the settings much more with backup rate removed. No indication for titration study at this time. Follow-up with Dr. Burks in 3 months. Obesity (BMI 30.0-34.9) (Chronic) Pseudotumor cerebri (Chronic) Hospital Course and Treatment Imaging Results: Clinical Impression(s) from Imaging Studies Chest X-Ray 12/18/17 01:05 IMPRESSION: No acute findings in the lungs Electronically Signed: Roc Silva, at 4:44 EDT Tel , Service support , Sinuses X-Ray 12/18/17 01:05 IMPRESSION: Normal x-rays of the paranasal sinuses. No acute sinusitis Electronically Signed: Roc Silva, at 4:44 EDT Tel , Service support , Operations: None Summary of Care Provided: The patient is a 52 year old F who presented following a syncopal episode at home 1. Syncopal episode secondary to orthostatic hypotension patient was admitted to a monitored bed for continuous telemetry monitoring no pathological arrhythmias found. Patient was resuscitated with IV fluids with improvement in his symptoms patient did request to be discharged a day following her admission since she had an interview for a job. Prior to patient being discharged we did check orthostatics which came back negative for orthostatic hypotension 2. Suspected adrenal insufficiency patient was apparently followed by an dental associate who did rule this out 3. Suspected acute sinusitis treated with Augmentin 4. CAD with previous stent placement 5. Pseudotumor cerebri patient is on Diamox apparently being weaned off by her neurologist 6. COPD stable 7. Obstructive sleep apnea on CPAP 8. Dyslipidemia Discharge Diet: No Restrictions Discharge Activity: Return to Normal Activity Home Medications: Medications to take at Discharge Aspirin [Aspirin, Baby] 81 mg PO DAILY@0800 10/03/16 Clopidogrel Bisulfate [Plavix] 75 mg PO DAILY 05/14/17 Albuterol Sulfate [Ventolin Hfa] 2 puff INHALATION Q4H PRN PRN 05/15/17 pravastatin 20 mg tablet 20 mg PO QHS 09/18/17 umeclidinium 62.5 mcg-vilanterol 25 mcg/actuation powdr for inhalation 1 inh INHALATION Q24H #1 device 10/17/17 AcetaAZOLAMIDE [Diamox] 250 mg PO TID 12/17/17 Fluticasone 0.05% [Flonase Nasal [place]] 1 spray NASAL DAILY 12/17/17 Amox/Clavulanate Tablet [Augmentin Tablet] 875 mg PO BIDCM #20 tab 12/18/17 Omeprazole [Prilosec] 20 mg PO DAILY 12/18/17 Sennosides/Docusate Sodium [Senna-Docusate Sodium Tablet] 1 tab PO DAILY 12/18/17 Following Prescrptions Were Given to Patient: Amox/Clavulanate Tablet [Augmentin Tablet] 875 mg PO BIDCM #20 tab Primary Care Physician: Brooke Altamirano [Primary Care Provider] - Please follow up with your Primary Care Physician in: in 3-5 days Please Follow Up With: Brooke Altamirano Disposition: Home Medical Necessity - Tobacco Use Smoking Status: Current every day smoker Tobacco Use: Cigarettes Meaningful Use Info Meaningful Use Diagnoses (Choose all that apply): None applicable Code Visit OBSV E&M: 66619 Observation care discharge
== END 2017-12-18 10:52 | disposition home or self-care (01) ==
LOC: ED 23:16 → PCU 23:47
PROVIDERS: Admitting Provider Hospitalist; Emergency Provider Emergency Medicine; Family Provider Family Medicine; PCP Family Medicine; Visit Provider Internal Medicine
DX: R55 Syncope and collapse (principal); I95.89 Other hypotension; I25.5 Ischemic cardiomyopathy; G93.2 Benign intracranial hypertension; E66.9 Obesity, unspecified; Z68.27 Body mass index [BMI] 27.0-27.9, adult; Z71.3 Dietary counseling and surveillance; G47.33 Obstructive sleep apnea (adult) (pediatric); E78.5 Hyperlipidemia, unspecified; E27.40 Unspecified adrenocortical insufficiency; I25.10 Atherosclerotic heart disease of native coronary artery without angina pectoris; J44.9 Chronic obstructive pulmonary disease, unspecified; I10 Essential (primary) hypertension; F17.210 Nicotine dependence, cigarettes, uncomplicated; Z79.899 Other long term (current) drug therapy; Z79.02 Long term (current) use of antithrombotics/antiplatelets; Z79.82 Long term (current) use of aspirin
CPT/HCPCS: 36415; 70220; 71045; 80048; 80053; 81001; 82533; 84484; 85025; 87804; 93005; 94640; 96361; 96374; 96376; 97162; 97165; 99218; 99285; 99406; J7030; A4216; G0378

== ENCOUNTER → 2017-12-26 15:38 | Outpatient (CLI) | payer OTHER, SELFPAY ==
--- NOTE | 2017-12-26 15:40 | BI_ITS ---
MAMMOGRAPHY - BILATERAL SCREENING REASON FOR EXAM: Female, 52 years old. Routine annual screening examination. PERTINENT HISTORY: Non-contributory. TECHNIQUE: Digital bilateral breast fidel (3D mammographic acquisition) in the CC and MLO projections. 2-D mediolateral oblique (MLO) and craniocaudad (CC) views of both breasts were obtained. CAD: Full Field Digital Mammography with Computer Added Detection was performed. COMPARISON: Comparison is made with prior study dated November 16, 2016. FINDINGS: Breast Composition: The breasts are heterogeneously dense, which may obscure small masses. There are no dominant masses or suspicious calcifications. No other significant abnormalities are identified. There has been no significant change since the prior study. BI/SCREENING MAMM (CAD), BILAT IMPRESSION: Stable bilateral screening mammogram. Yearly follow-up mammogram recommended. (A) ASSESSMENT CATEGORY: BIRADS Category 1: Negative. A letter regarding these results will be sent to the patient by the facility within 30 days. Approximately 10% of breast cancers are not detected by mammography. A normal mammogram should not delay biopsy of a clinically suspicious abnormality. [id number] Electronically Signed: Edwin Kahn MD at 8:58 EDT Tel [phone], Service support ,
--- NOTE | 2017-12-26 15:47 | BD_ITS ---
STUDY: DUAL ENERGY X-RAY ABSORPTIOMETRY / DXA REASON FOR EXAM: Female, 52 years old. The patient is postmenopausal. Loss of height. TECHNIQUE: Bone Mineral Density (BMD) measurements of lumbar spine and bilateral hips were obtained. COMPARISON: None. FINDINGS: Lumbar Spine (L1-L4): g/cm2 (1.465) / T-score (2.2) / Z-score (2.7) Findings are suggestive of normal bone density with a low fracture risk. Left Femur Total: g/cm2 (0.968) / T-score (-0.3) / Z-score (0.2) Left Femoral Neck: g/cm2 (0.824) / T-score (-1.5) / Z-score (-0.7) Right Femur Total: g/cm2 (0.982) / T-score (-0.2) / Z-score (0.3) Right Femoral Neck: g/cm2 (0.888) / T-score (-1.1) / Z-score (-0.3) BD/Dexa Bone Density Study IMPRESSION: The patient is considered osteopenic as outlined below according to World Evelio Organization (WHO) criteria with a moderate fracture risk. Reference Information: The T-score is the number of standard deviations above or below the standard which is normal for young adults at their peak bone mineral density. The World Health Organization (WHO) interprets the T-scores as follows: Above -1 Normal bone density Between -1 and -2.5 Osteopenia Equal to / or below -2.5 Osteoporosis As a practical clinical guideline, osteopenia may be graded as follows: Mild -1 through -1.5 Moderate -1.6 through -2.0 Severe -2.1 through -2.4 The Z-score is the number of standard deviations above or below age-matched controls. A Z-score of less than -1.5 would be considered abnormal. References: 1. NIH Osteoporosis and Related Bone Diseases http://www.osteo.org 2. International Society for Clinical Densitometry http://www.iscd.org 3. National Osteoporosis Foundation http://www.nof.org Electronically Signed: Edwin Kahn MD at 8:20 EDT Tel [phone], Service support ,
== END ==
LOC: OPBD 15:39
PROVIDERS: Family Provider Family Medicine; PCP Family Medicine; Visit Provider Obstetrics & Gynecology
DX: Z12.31 Encounter for screening mammogram for malignant neoplasm of breast (principal); E28.319 Asymptomatic premature menopause
CPT/HCPCS: 77063; 77067; 77080

== ENCOUNTER 2018-01-14 17:42 | Emergency (ER) | payer OTHER, SELFPAY ==
[2018-01-14 17:43] VITALS: BP 109/64; PULSE 78; RESP 15; TEMP 37.2; O2SAT 98; BMI 28.1
--- NOTE | 2018-01-14 18:13 | EKG12_ITS ---
Test Reason : Blood Pressure : / mmHG Vent. Rate : 068 BPM Atrial Rate : 068 BPM P-R Int : 164 ms QRS Dur : 080 ms QT Int : 424 ms P-R-T Axes : 061 033 077 degrees QTc Int : 450 ms Normal sinus rhythm Low voltage QRS Anteroseptal infarct , age undetermined Abnormal ECG Confirmed by ANTONIO MATTHEW, ALCIDES ([id number]), continuity editor ERMA COSTA ([id number]) on 01/24/2018 6:55:27 PM Referred By: Confirmed By:ALCIDES ALVAREZ MD
[2018-01-14 18:33] LABS: Absolute Lymphocyte Count 2.49 X10^3/ul (0.83-4.51); Absolute Neutrophil Count 3.4 X10^3/uL (2.0-7.7); Basophil# 0.01 X10^3/uL; Basophil% 0.2 % (0-1); Eosinophil# 0.16 X10^3/uL; Eosinophils% 2.4 % (0-5); Hematocrit 40.8 % (37-47); Hemoglobin 13.3 g/dl (12.0-15.0); Lymphocyte # 2.49 X10^3/ul (4.0); Lymphocyte % 37.6 % (19-41); Mean Corp Hgb Conc 32.6 g/gl (32-36); Mean Corpuscular Hgb 32.1 pg (27.0-32.0); Mean Corpuscular Volume 98.6 fL (81-99); Mean Platelet Vol. 9.1 fl (6.2-12.0); Monocyte# 0.54 X10^3/uL; Monocyte% 8.2 % (0-10); Neutrophil # 3.41 X10^3/uL (2.7-7.7); Neutrophil % 51.4 % (47-70); Platelet Count 215 K/mm3 (150-450); RBC Distribution Width CV 13.7 % (11.6-14.6); RBC Distribution Width SD 49.4 fl (35.1-43.9); Red Blood Count 4.14 M/mm3 (4.2-5.4); White Blood Count 6.6 K/mm3 (4.4-11.0)
[2018-01-14 18:35] LABS: POSITIVE COUNT NO; POSITIVE DIFFERENTIAL NO; POSITIVE MORPHOLOGY NO
[2018-01-14] MEDS: 0.9% Normal Saline 1,000 ML 1000 ML IV (18:35)
[2018-01-14 18:36] VITALS: BP 88/66; BP 93/60; BP 96/60; PULSE 73; PULSE 77; RESP 13; O2SAT 97
[2018-01-14 18:49] LABS: Anion Gap 6 (5-15); BUN 22 mg/dL (7-18); BUN/Creat Ratio 29.1 RATIO (10-20); Calcium,Total 8.2 mg/dL (8.5-10.1); Chloride 113 mmol/L (98-107); Creatinine, Serum 0.76 mg/dL (0.55-1.02); EST Glomerular Filtration Rate 86 mL/min (>60); Est Glom Filt Rate - Afr Amer 104 mL/min (>60); Estimated Creatinine Clearance 75.62 ml/min; Glucose 74 mg/dL (74-106); Sodium Level 144 mmol/L (136-145)
[2018-01-14] MEDS: 0.9% Normal Saline 1,000 ML 999 ML IV (19:18)
[2018-01-14] MEDS: Hydrocortisone Sod Succinate 100 MG/2 ML Vial IV (19:23)
[2018-01-14 20:05] VITALS: BP 84/54; PULSE 65; RESP 12; O2SAT 98
[2018-01-14 22:04] VITALS: BP 98/61; PULSE 70; RESP 16; O2SAT 96
--- NOTE | 2018-01-14 22:21 | ED.VISSUMM ---
- ER Visit Summary Date of Service: 01/14/18 Chief Complaint: Dizziness and low blood pressure History of Present Illness: The patient is a 52 F history of possible adrenal insufficiency, CAD, MD with a cardiac stent, COPD and pseudotumor. Patient was being worked up for possible adrenal insufficiency. Was told hospitalization that she had a. Followed up with an outpatient radiologic therapist who stopped her Solu-Cortef. Since that time she had intermittent episodes of hypotension. Which causes her to have dizziness and feels lightheaded. She is also had some nausea but no vomiting or diarrhea. She states today she has been having dizziness since this morning. Describes her dizziness as lightheadedness. Physical Examination: Middle-aged female initial blood pressure is 109/64 however when I am in the room is 88/66. Heart rate 78. Pulse ox 90% on room air no signs of hypoxia. HEENT exam unremarkable. Pupils round reactive light. No facial droop. Moist mucous membranes. Neck nontender no lymphadenopathy. No meningismus. Heart regular rate and rhythm no murmur. Lungs clear to auscultation bilaterally. Abdomen soft and nontender. Normal bowel sounds no peritoneal signs. She is moving all 4 extremities. Neurovascular intact. Calves are nontender without edema or cords. Neurologically she is awake alert without any focal motor or sensory deficits. Test Results: Due to the patient's hypotension she underwent a workup. Her EKG showed normal sinus rhythm rate of 68. Unchanged from 1 from December of this year. CBC showed a white count of 6 H&H of 13 and 40. No bands. BMP unremarkable anion gap is 6. BUN of 22 and creatinine 0.7. Orthostatic vital signs she was hypotensive before they even started orthostatic vital signs he did not do a standing blood pressure. Emergency Department Course and Treatment: Treated initially with 1 L of IV fluids and she remained hypotensive. She was given a second liter and then a treatment of IV Solu-Cortef. Currently on repeat exam her blood pressure is 106/63 and she is feeling better. She will be given a gram of Tylenol. Recently restarted back on oral Solu-Cortef. And follow-up with her primary care physician. Treatment Plan: Solu-Cortef p.o. Disposition: Discharge Impression: Transient hypotension History of adrenal insufficiency This note was generated with [employer]ation software. It may contain incorrect words, spelling, and punctuation that were not noted in review of the chart prior to signing ED Disposition - Plan for ED Patient: Chief Complaint: Dizziness Referrals: Brooke Altamirano [Primary Care Provider] -
--- NOTE | 2018-01-14 22:26 | ED.DCSUM_ITS ---
- ER Visit Summary Date of Service: 01/14/18 Chief Complaint: Dizziness and low blood pressure History of Present Illness: The patient is a 52 F history of possible adrenal insufficiency, CAD, ID with a cardiac stent, COPD and pseudotumor. Patient was being worked up for possible adrenal insufficiency. Was told hospitalization that she had a. Followed up with an outpatient tool room lathe operator who stopped her Solu-Cortef. Since that time she had intermittent episodes of hypotension. Which causes her to have dizziness and feels lightheaded. She is also had some nausea but no vomiting or diarrhea. She states today she has been having dizziness since this morning. Describes her dizziness as lightheadedness. Physical Examination: Middle-aged female initial blood pressure is 109/64 however when I am in the room is 88/66. Heart rate 78. Pulse ox 90% on room air no signs of hypoxia. HEENT exam unremarkable. Pupils round reactive light. No facial droop. Moist mucous membranes. Neck nontender no lymphadenopathy. No meningismus. Heart regular rate and rhythm no murmur. Lungs clear to auscultation bilaterally. Abdomen soft and nontender. Normal bowel sounds no peritoneal signs. She is moving all 4 extremities. Neurovascular intact. Calves are nontender without edema or cords. Neurologically she is awake alert without any focal motor or sensory deficits. Test Results: Due to the patient's hypotension she underwent a workup. Her EKG showed normal sinus rhythm rate of 68. Unchanged from 1 from December of this year. CBC showed a white count of 6 H&H of 13 and 40. No bands. BMP unremarkable anion gap is 6. BUN of 22 and creatinine 0.7. Orthostatic vital signs she was hypotensive before they even started orthostatic vital signs he did not do a standing blood pressure. Emergency Department Course and Treatment: Treated initially with 1 L of IV fluids and she remained hypotensive. She was given a second liter and then a treatment of IV Solu-Cortef. Currently on repeat exam her blood pressure is 106 /63 and she is feeling better. She will be given a gram of Tylenol. Recently restarted back on oral Solu-Cortef. And follow-up with her primary care physician. Treatment Plan: Solu-Cortef p.o. Disposition: Discharge Impression: Transient hypotension History of adrenal insufficiency This note was generated with [employer] software. It may contain incorrect words, spelling, and punctuation that were not noted in review of the chart prior to signing ED Disposition - Plan for ED Patient: Chief Complaint: Dizziness Referrals: Brooke Altamirano [Primary Care Provider] -
--- NOTE | 2018-01-14 22:26 | ED.DEP ---
ED Disposition - Plan for ED Patient: Disposition: Home or Assisted Living Chief Complaint: Dizziness Instructions: ED Hypotension All Causes Prescriptions: Hydrocortisone [Cortef] 20 mg PO BID #60 tab Referrals: Brooke Altamirano [Primary Care Provider] - As soon as possible Additional Instructions: Fluids and rest. Watch her blood sugars closely. Start the Solu-Cortef (Cortef) 20 mg twice a day. Call follow-up your doctor soon as possible. Return to the ER if feeling worse.
[2018-01-14] MEDS: Acetaminophen 500 MG Tablet 1000 MG PO (22:27)
[2018-01-14 22:28] VITALS: BP 106/63; PULSE 70; RESP 16; O2SAT 98
== END 2018-01-14 22:38 | disposition home or self-care (01) ==
PROVIDERS: Emergency Medicine; Emergency Provider Emergency Medicine; Family Provider Family Medicine; PCP Family Medicine
DX: I95.9 Hypotension, unspecified (principal); E27.40 Unspecified adrenocortical insufficiency; I25.10 Atherosclerotic heart disease of native coronary artery without angina pectoris; J44.9 Chronic obstructive pulmonary disease, unspecified; I25.2 Old myocardial infarction; G47.30 Sleep apnea, unspecified; Z95.5 Presence of coronary angioplasty implant and graft; Z72.0 Tobacco use; Z79.51 Long term (current) use of inhaled steroids; Z79.82 Long term (current) use of aspirin; Z79.899 Other long term (current) drug therapy
CPT/HCPCS: 80048; 85025; 93005; 96361; 96374; 99285; J7030

== ENCOUNTER 2018-01-15 17:58 | Emergency (ER) | payer OTHER, SELFPAY ==
--- NOTE | 2018-01-15 17:58 | DT_ITS ---
This patient was seen during an EMR downtime January 15, 2018 - January 22, 2018. This patient may have a combination of paper and electronic documentation or all paper documentation. All documentation is viewable within the e-chart portion of [employer] for each patient visit.
--- NOTE | 2018-01-15 21:20 | RAD_ITS ---
STUDY: X-RAY CHEST REASON FOR EXAM: Female, 52 years old. Line placement TECHNIQUE: Single AP portable view of the chest. COMPARISON: 12/18/2017 FINDINGS: There is a left subclavian central venous catheter with the tip in the SVC. The lungs are clear and expanded. There is no demonstrated pleural abnormality. Normal size heart. Normal mediastinum and judy. Normal visualized pulmonary arteries. Normal visualized aortic arch and descending thoracic aorta. There are diffuse degenerative changes of the visualized thoracic spine. Normal visualized ribs, clavicles, and shoulders. There is no demonstrated abnormality of the visualized soft tissue structures of the upper abdomen. RAD/CXR for Line Placement IMPRESSION: No pneumothorax status post central line placement. Please note that this study was performed on 01/15/2018, but only now placed in my queue for interpretation, explaining the delay in reporting. Electronically Signed: Haja Pena DO at 12:50 EDT Tel , Service support ,
[2018-01-18 12:14] LABS: BUN 27 mg/dL (7-18); Glucose 100 mg/dL (74-106)
[2018-01-18 12:15] LABS: ALB/GLOB Ratio 1.1 RATIO (0.9-2.4); AST(SGOT) 9 U/L (15-37); Alanine Aminotransfer ALT/SGPT 24 U/L (13-56); Albumin, Serum 3.3 g/dL (3.2-5.0); Alkaline Phosphatase 51 U/L (45-117); Anion Gap 8 (5-15); BUN/Creat Ratio 27.6 RATIO (10-20); Calcium,Total 8.2 mg/dL (8.5-10.1); Chloride 116 mmol/L (98-107); Creatinine, Serum 0.98 mg/dL (0.55-1.02); EST Glomerular Filtration Rate 64 mL/min (>60); Est Glom Filt Rate - Afr Amer 78 mL/min (>60); Globulin 3.1 g/dL (2.2-4.2); Potassium 3.6 mmol/L (3.5-5.1); Protein, Total 6.4 g/dL (6.4-8.2); Sodium Level 147 mmol/L (136-145); Thyroid Stim Hormone (TSH) 1.41 uIU/mL (0.358-3.74)
[2018-01-18 15:12] LABS: Mucous, Urine 0 SEEN /hpf (<or=2+); Red Blood Cells-Urine 0 SEEN /hpf (0-5)
[2018-01-18 15:29] LABS: Color, Urine Yellow (Yellow)
[2018-01-18 15:30] LABS: Bacteria RARE /hpf (None Seen); Glucose, Dipstick 100 mg/dl (Normal); Ketone-Dipstick Negative (Negative); Leukocyte Esterase-Dipstick Negative /ul (Negative); Nitrite-Dipstick Negative (Negative); Occult Blood-Urine Negative /ul (Negative); Protein-Dipstick Negative (Negative); Squamous Epithelial Cells - UA 0-5 SEEN /hpf (5-10); Urine Bilirubin Dipstick Negative (Negative); Urine Clarity Sl Cldy (Clear); Urine Urobilinogen Normal (Normal); White Blood Cells 0-5 SEEN /hpf (0-5)
[2018-01-18 17:32] LABS: International Normalized Ratio 1.1; Prothrombin Time (Protime)PT. 14.5 SECONDS (11.7-14.9)
[2018-01-19 09:19] LABS: Hematocrit 42.3 % (37-47); Hemoglobin 13.2 g/dl (12.0-15.0); Mean Corp Hgb Conc 31.2 g/gl (32-36); Mean Corpuscular Volume 102.4 fL (81-99); Platelet Count 234 K/mm3 (150-450); RBC Distribution Width CV 13.7 % (11.6-14.6); RBC Distribution Width SD 50.7 fl (35.1-43.9); Red Blood Count 4.13 M/mm3 (4.2-5.4); White Blood Count 11.5 K/mm3 (4.4-11.0)
[2018-01-19 09:20] LABS: Absolute Lymphocyte Count 1.71 X10^3/ul (0.83-4.51); Absolute Neutrophil Count 8.9 X10^3/uL (2.0-7.7); Basophil# 0.02 X10^3/uL; Basophil% 0.2 % (0-1); Eosinophil# 0.08 X10^3/uL; Eosinophils% 0.7 % (0-5); Lymphocyte # 1.71 X10^3/ul (4.0); Lymphocyte % 14.8 % (19-41); Monocyte# 0.84 X10^3/uL; Monocyte% 7.3 % (0-10); Neutrophil # 8.85 X10^3/uL (2.7-7.7); Neutrophil % 76.7 % (47-70); POSITIVE COUNT NO; POSITIVE DIFFERENTIAL NO; POSITIVE MORPHOLOGY NO
[2018-01-19 09:21] LABS: Neutrophil-Segmented 76.7 % (47-70)
[2018-01-22 14:40] LABS: Allen Test POS; Base Excess -11 mmol/L (-2 to +2); Bicarbonate 16.9 mmol/L (22-26); Blood Gas Specimen Type ART; O2 Delivery Device Nasal Can; PO2 101 mmHG (75-100); SITE L Brachial; SO2 97 % (95-99); Time Given 1850; Total Carbon Dioxide 18 mmol/L; pCO2 40.3 mmHg (35-45); pH 7.23 (7.35-7.45)
[2018-01-26 09:17] LABS: Bedside Glucose 37 mg/dL (70-110)
[2018-01-26 09:27] LABS: Bedside Glucose 91 mg/dL (70-110)
[2018-01-26 09:30] LABS: Bedside Glucose 33 mg/dL (70-110)
[2018-01-26 09:38] LABS: Bedside Glucose 112 mg/dL (70-110)
[2018-01-26 10:19] LABS: Bedside Glucose 45 mg/dL (70-110)
[2018-01-26 10:20] LABS: Bedside Glucose 103 mg/dL (70-110)
[2018-01-26 10:21] LABS: Bedside Glucose 52 mg/dL (70-110)
[2018-01-26 10:23] LABS: Bedside Glucose 49 mg/dL (70-110)
== END 2018-01-15 21:25 | disposition short-term general hospital (02) ==
PROVIDERS: Emergency Provider Emergency Medicine; Family Provider Family Medicine; PCP Family Medicine
DX: I95.9 Hypotension, unspecified (principal); E27.9 Disorder of adrenal gland, unspecified; E16.2 Hypoglycemia, unspecified; E87.2 Acidosis; R21 Rash and other nonspecific skin eruption; Z86.73 Personal history of transient ischemic attack (TIA), and cerebral infarction without residual deficits; I25.10 Atherosclerotic heart disease of native coronary artery without angina pectoris; J44.9 Chronic obstructive pulmonary disease, unspecified; E78.00 Pure hypercholesterolemia, unspecified; I49.3 Ventricular premature depolarization; Z79.899 Other long term (current) drug therapy
CPT/HCPCS: 36415; 36556; 36600; 51702; 71045; 80053; 81001; 82533; 82803; 82962; 84443; 84484; 85025; 85610; 93005; 96361; 96374; 96375; 96376; 99285; J7030; A4216; C1751

== ENCOUNTER → 2018-01-30 10:44 | Outpatient (CLI) | payer OTHER, SELFPAY ==
--- NOTE | 2018-01-31 07:10 | PFT ---
INTRODUCTION: The patient is a 52-year-old female currently under the care of myself the presents for pulmonary function testing secondary to a diagnosis of shortness of breath. Respiratory therapy reports good patient effort. Bronchodilators were used during testing. INTERPRETATION: Forced expiration spirometry demonstrates the presence of a mild large airways obstructive ventilatory defect. There was no significant response to aerosolized bronchodilators. Spirograms are of good quality and do not plateau indicating slow emptying of the lungs. Body plethysmography was performed and reveals lung volumes to be within normal limits. Diffusing capacity by single breath CO is relatively preserved at 79% of predicted. When compared to previous pulmonary function studies dated November 2016 there is been significant improvement in the patient's FEV1, along with a decrease in RV by 37% and an improvement in DLCO by 14%. IMPRESSION: These pulmonary function studies demonstrate the presence of an irreversible mild large airways obstructive ventilatory defect. Lung volumes and diffusing capacity are now within normal limits. There has been significant improvement since PFTs were last completed in November 2016.
== END ==
PROVIDERS: Family Provider Family Medicine; PCP Family Medicine; Visit Provider Internal Medicine Critical Care Medicine
DX: J44.9 Chronic obstructive pulmonary disease, unspecified (principal); F17.201 Nicotine dependence, unspecified, in remission
CPT/HCPCS: 94060; 94726; 94729

== ENCOUNTER → 2018-02-02 13:17 | Outpatient (CLI) | payer OTHER, SELFPAY ==
--- NOTE | 2018-02-02 13:18 | STE_ITS ---
Reason For Study: CAD/ASHD Stress Results Protocol: Obi Protocol Maximum Predicted HR: 169 bpm Target HR: 144 bpm% Max imum Predicted HR: 95 % DurationHeart Rate Stage (mm:ss) (bpm) BP BASELINE 71 118/76 STAGE 1 3:00 11 8 148/80 STAGE 2 3:00 13 4 152/82 STAGE 3 3:00 16 0 162/88 RECOVERY 96 122/62 Stress Duration: 9:00 mm:ss Maximum Stress HR: 160 bpm Baseline Echocardiogram Findings The estimated ejection fraction is 45 %. Stress Echo Wall motion Data Resting WMIntermediate WMStress WM Resting Wall Motion Wall Motion Stress Basal anteroseptal: Severely Anterio-Basal: Severely Hypokinetic. hypokinetic. Mid-Anterior : Severely Hypokinetic. Anterior [place] : Akinetic. EKG Data The baseline ECG demonstrates normal sinus rhythm with at rate of _ beats per minute. The patient exercised according to the regular Obi protocol for a total duration of 9:00. The maximum heart rate attained was 162 beats per minute. This was 95% of maximum predicted heart rate. The patient exercised into stage 4 of the Obi protocol. During stress, there were no ST or T wave changes noted to suggest ischemia. Interpretation Summary The estimated ejection fraction is 45 %. Abnormal, adequate, treadmill echocardiogram. Positive for ischemia by echocardiographic criteria. Patient had baseline moderate LV dysfunction with evidence of anteroseptal and apical hypokinesis consistent with previous myocardial infarction. During exercise the patient developed left arm pain consistent with her anginal equivalent. Rare PVCs noted. Patient had additionally noted proximal anterior hypokinesis at peak exercise. Test terminated due to dyspnea. Final LVEF of 40%. Ordering Physician: Sterling Morgan Referring Physician: Sterling Morgan Performed By: Cheikh Ojeda RCS
--- NOTE | 2018-02-02 14:50 | RAD_ITS ---
STUDY: X-RAY CHEST REASON FOR EXAM: Female, 52 years old. Chest pain TECHNIQUE: Frontal and lateral view of the chest. COMPARISON: January 15, 2018 FINDINGS: Right subclavian line has been removed. The lungs are clear and expanded. There is no demonstrated pleural abnormality. Normal size heart. Normal mediastinum and judy. Normal visualized pulmonary arteries. Normal visualized aortic arch and descending thoracic aorta. There are diffuse degenerative changes of the visualized thoracic spine. Normal visualized ribs, clavicles, and shoulders. There is no demonstrated abnormality of the visualized soft tissue structures of the upper abdomen. RAD/Chest PA and Lateral IMPRESSION: There are no acute findings in the chest. Electronically Signed: Mariano Waller MD at 16:47 EDT , Service support ,
[2018-02-02 15:26] LABS: Anion Gap 8 (5-15); BUN 23 mg/dL (7-18); BUN/Creat Ratio 27.4 RATIO (10-20); Calcium,Total 9.2 mg/dL (8.5-10.1); Chloride 109 mmol/L (98-107); Creatinine, Serum 0.84 mg/dL (0.55-1.02); EST Glomerular Filtration Rate 76 mL/min (>60); Est Glom Filt Rate - Afr Amer 92 mL/min (>60); Glucose 84 mg/dL (74-106); Potassium 3.9 mmol/L (3.5-5.1); Sodium Level 137 mmol/L (136-145)
[2018-02-02 15:49] LABS: Prothrombin Time (Protime)PT. 13.4 SECONDS (11.7-14.9)
== END ==
PROVIDERS: Family Provider Family Medicine; PCP Family Medicine; Visit Provider Internal Medicine Cardiovascular Disease
DX: I25.5 Ischemic cardiomyopathy (principal); I25.10 Atherosclerotic heart disease of native coronary artery without angina pectoris; E78.5 Hyperlipidemia, unspecified; J44.9 Chronic obstructive pulmonary disease, unspecified; G47.33 Obstructive sleep apnea (adult) (pediatric); G93.2 Benign intracranial hypertension; E66.9 Obesity, unspecified; I10 Essential (primary) hypertension; E27.40 Unspecified adrenocortical insufficiency; I95.9 Hypotension, unspecified; J32.9 Chronic sinusitis, unspecified; F17.201 Nicotine dependence, unspecified, in remission; Z95.5 Presence of coronary angioplasty implant and graft; Z86.39 Personal history of other endocrine, nutritional and metabolic disease
CPT/HCPCS: 36415; 71046; 80048; 85610; 93017; 93350

== ENCOUNTER 2018-02-07 08:40 | Day surgery (SDC) | payer OTHER, SELFPAY ==
[2018-02-05 15:15] LABS: Absolute Lymphocyte Count 3.41 X10^3/ul (0.83-4.51); Absolute Neutrophil Count 3.2 X10^3/uL (2.0-7.7); Basophil# 0.02 X10^3/uL; Basophil% 0.3 % (0-1); Eosinophil# 0.14 X10^3/uL; Eosinophils% 1.9 % (0-5); Hemoglobin 13.3 g/dl (12.0-15.0); Lymphocyte # 3.41 X10^3/ul (4.0); Mean Corp Hgb Conc 31.7 g/gl (32-36); Mean Corpuscular Hgb 31.8 pg (27.0-32.0); Mean Corpuscular Volume 100.5 fL (81-99); Mean Platelet Vol. 9.2 fl (6.2-12.0); Monocyte# 0.47 X10^3/uL; Monocyte% 6.5 % (0-10); Neutrophil # 3.21 X10^3/uL (2.7-7.7); Neutrophil % 44.2 % (47-70); POSITIVE COUNT NO; POSITIVE DIFFERENTIAL NO; POSITIVE MORPHOLOGY NO; Platelet Count 258 K/mm3 (150-450); RBC Distribution Width CV 13.8 % (11.6-14.6); Red Blood Count 4.18 M/mm3 (4.2-5.4); White Blood Count 7.3 K/mm3 (4.4-11.0)
[2018-02-06 08:42] VITALS: BMI 28.5
[2018-02-07 10:08] LABS: Pregnancy, Serum, hCG Quali. NEGATIVE Negative (0-9 Nonpreg)
--- NOTE | 2018-02-07 11:54 | CL.I_ITS ---
Patient Name: GURJIT CATALAN Study Date: 02/07/2018 Performing: Sterling Morgan MD Ht: 64.17 inches 163 cm : 1965 Wt: 165.35 lbs 75 kg Age: 52 Gender: female BSA: 1.81 PROCEDURE(S) PERFORMED KY51-GYT/COR/LV CS64-[id number], CORONARY OR GRAFT, INITIAL VESSEL CLINICAL PROFILE AND CO-MORBIDITIES Indications: Worsening Angina, Stable Known CAD Heart Failure: None Stress/Imaging Stress Echocardiogram: Yes Result: Positive Low Risk Stress Echocardiogram: Positi ve Low Risk Angina Classification Anginal Classification w/in 2 Weeks: CCS III CAD Presentations: Unstable angina. Comorbidities/Risk Factors: Current/Recent Smoker (< 1year) Hypertension Dyslipidemia Prior PCI CONCLUSIONS Perserved Left Ventricular systolic function with normal EDP Equivocal CAD found not significant by FFR Negative FFR of RCA. RECOMMENDATIONS Refer for FFR at this setting. Management as per referring Wrapper Sheeter Start Imduer 30mg po daily. Highly recommend quitting all tobacco products Follow up with primary residential recycle driver Risk factor modification ASA Indefinitley Plavix for at least 12 months Routine post interventional care Refer for Outpatient Cardiac Rehab Manual sheath removal per protocol Medical management of ostial DIAG. DESCRIPTION OF PROCEDURE The patient arrived to the procedure lab. The risks and benefits of the procedure as well as a full d escription of our services here and lack of surgical backup were fully explained to the patient and/o r their significant other prior to the catheterization. The Timeout was completed, verifying the rica ect patient and procedure. The patient's procedural site was prepped and draped in the usual fashion. Local anesthetic was given subcutaneously to right groin region with Lidocaine 2%. Using a modified Seldinger technique, arterial access was obtained via the right femoral artery, a 4Fr sheath was inse rted. Left Coronary Artery selective angiography was performed in multiple views using a 4 Fr. JL5 c atheter. Right Coronary Artery selective angiography was then performed in multiple views using a 4 F r. 3DRC catheterThe images were reviewed and options discussed. A decision was then made to proceed w ith an Intervention, IVUS or other adjunct procedure. Arterial sheath was exchanged for a 6 Fr Sheath. HS 2 Guide catheter was inserted and engaged into th e RCA. The FFR/iFR wire was inserted. Adenosine was then given per protocol. Pressures and FFR/iFR we re then recorded. FFR Ratio Baseline: 0.94 FFR Ratio post Adenosine: 0.87 The FFR/iFR wire was then r emoved. The arterial sheath was sutured in place and capped CORONARY ANGIOGRAPHY DOMINANCE: Right Dominant LEFT HEART ASSESSMENT Left Ventricular Ejection Fraction: by LV Gram 60 % Apical Hypokinesis - Moderate LEFT MAIN: Angiographically normal LEFT ANTERIOR DECENDING ARTERY: PROX LAD: Previously placed stent is patent DIAGONAL 1: Ostial - Mild luminal irregularities less than 30% CIRCUMFLEX ARTERY: Mild luminal irregularities less than 30% RIGHT CORONARY ARTERY: DISTAL RCA: 50 % Stenosis INTERVENTION INFORMATION LESION SITE: RCA (Distal) Lesion Devices: [employer] 6 Fr HSII 100cm Guide Catheter [employer] Coronary FFR Wire COMPLICATIONS No Complications PROCEDURE MEDICATIONS Versed 1 mg IV Oxygen: 2 L/min via nasal cannula Adenosine drip for FFR 648 ml/hr @ 02/07/2018 11:36:06 Heparin 6000 unit(s) IV 02/07/2018 11:30:22 Nitro 200 mcg IC 02/07/2018 11:21:33 Nitro 200 mcg IC 02/07/2018 11:21:33 Solu-cortef 100 mg IV 02/07/2018 11:04:53 SUMMARY OF HEMODYNAMIC DATA Time AIR REST ECG 09:01:14 ECG 11:07:34 AO 111/70 (88) SA 11:16:41 LV 112/-7, 14 11:24:26 LV 114/-8, 14 11:24:33 LVp 116/-11, 12 11:24:38 AOp 109/59 (81) 11:24:43 AO 90/53 (69) 11:32:57 Signed By Sterling Morgan MD On 02/07/2018 11:53:56 Sterling Morgan MD
[2018-02-07 11:55] LABS: ACT Activated Clotting Time 169 sec (74-137)
[2018-02-07 15:11] VITALS: PULSE 92
[2018-02-07 15:40] VITALS: BP 122/64; PULSE 78; RESP 16; TEMP 36.9; O2SAT 96
[2018-02-07 16:40] VITALS: BP 130/73; PULSE 80; RESP 16; O2SAT 98
[2018-02-07 17:40] VITALS: BP 130/82; PULSE 84; RESP 16; O2SAT 98
[2018-02-07 18:40] VITALS: BP 123/72; PULSE 72; RESP 16; O2SAT 98
== END 2018-02-07 18:45 | disposition home or self-care (01) ==
LOC: CLSP 08:40 → PCU 15:12
PROVIDERS: Family Provider Family Medicine; PCP Family Medicine; Visit Provider Internal Medicine Cardiovascular Disease
DX: I25.118 Atherosclerotic heart disease of native coronary artery with other forms of angina pectoris (principal); I25.5 Ischemic cardiomyopathy; J44.9 Chronic obstructive pulmonary disease, unspecified; E78.5 Hyperlipidemia, unspecified; G47.33 Obstructive sleep apnea (adult) (pediatric); Z79.02 Long term (current) use of antithrombotics/antiplatelets; Z79.82 Long term (current) use of aspirin; Z79.899 Other long term (current) drug therapy; F17.200 Nicotine dependence, unspecified, uncomplicated; I25.2 Old myocardial infarction; Z86.39 Personal history of other endocrine, nutritional and metabolic disease; Z95.5 Presence of coronary angioplasty implant and graft
CPT/HCPCS: 36415; 84703; 85025; 85347; 93458; 93571; 99152; 99153; J0153; J7040; A4216; C1769; C1887; C1894; Q9967

== ENCOUNTER 2018-02-16 07:41 | Day surgery (SDC) | payer OTHER, SELFPAY ==
[2018-02-16] VITALS (8 sets, daily range): BP systolic 99–125; BP diastolic 65–86; PULSE 75–88; RESP 16; TEMP 36.2–37.3; O2SAT 96–99; BMI 28.3
[2018-02-16] MEDS: Hydrocortisone Sod Succinate 100 MG/2 ML Vial 50 MG IV (09:20)
--- NOTE | 2018-02-16 09:35 | ETH_PTH ---
PATIENT: GURJIT CATALAN LOC: [facility] [place] U#:[id number] AGE/SX: 52/F ROOM: RE02/16/[address]: Dr. Maximino Tello MD : 1965 BED: DIS: 02/16/2018 SPEC #: [id number] RECD: 02/16/18 13:16 STATUS: LEEANN CASSI #: [id number] SABIHA: 02/16/18 09:[address]: Maximino Tello DEPT: SURGICAL PATHOLOGY RECD BY: Koko Kern ENTERED: 02/16/18 13:44 SP TYPE: ETH TISS OTHR DR: Dr. Brooke Altamirano MD Tissues: A - Ethmoid sinus, NOS B - Ethmoid sinus, NOS C - Nasal septum, NOS Procedures: Decalcification bone/plaque Surgery Specimen Level III HEADER OPERATION: Septoplasty, submucous resect inferior turbinates, endoscopic PRE-OP DIAGNOSIS: Deviated nasal septum; hypertrophy of nasal turbinates; chronic ethmoidal sinusitis TISSUE SUBMITTED: A ? Right sinus contents, B ? Left sinus contents, C ? Septal bone and cartilage MICROSCOPIC DIAGNOSIS A. Right sinus contents, excision: Consistent with chronic sinusitis. Fragments of bone with reactive change. B. Left sinus contents, excision: Consistent with chronic sinusitis. Fragments of bone with reactive change. C. Nasal septal bone and cartilage, septoplasty: Fragments of hyaline cartilage and bone with reparative and reactive change. AM:geraldine 02/20/18 MICROSCOPIC DESCRIPTION Slides are reviewed. GROSS DESCRIPTION A - Received in fixative is one container labeled with the patient's name and designated right sinus contents. The specimen consists of multiple irregular and somewhat gritty fragments of pink-bone soft tissue that in aggregate measure 6 x 2.5 x 0.2 cm. The specimen is totally submitted in two cassettes after decalcification. B - Received in fixative is one container labeled with the patient's name and designated left sinus contents. The specimen consists of multiple irregular and somewhat gritty fragments of pink-bone soft tissue that in aggregate measure 6 x 2.5 x 0.2 cm. The specimen is totally submitted in two cassettes after decalcification. C - Received in fixative is one container labeled with the patient's name and designated septal bone and mucosa. The specimen consists of multiple irregular fragments of pink-bone bone and cartilage that in aggregate measure 2.5 x 2 x 0.2 cm. The specimen is totally submitted in one cassette after decalcification. / AM:geraldine 02/16/18 TC:5 CPT:87364 x3, 62136 x3
[2018-02-16] MEDS: Lidocaine 4% 50 ML Bottle (09:51)
[2018-02-16] MEDS: Oxymetazoline 0.05% 1 SPRAY SPRAY.BTL 15 SPRAY (09:51)
[2018-02-16] MEDS: Bacitracin 500 UNITS/GM PACKET (11:01)
--- NOTE | 2018-02-16 11:21 | OP.PCM_ITS ---
Problem List (1) Deviated nasal septum Status: Chronic (2) Hypertrophy of both inferior nasal turbinates Status: Chronic (3) Chronic maxillary sinusitis Status: Chronic (4) Chronic ethmoidal sinusitis Status: Chronic Report of Operation Date of Procedure: 02/16/18 Pre-Operative Diagnosis: Deviated nasal septum, hypertrophy of inferior turbinates, chronic sinusitis Post-Operative Diagnosis: same Surgery/Procedure Performed:: Septoplasty, submucous resection of inferior turbinates, bilateral endoscopic partial ethmoidectomies and maxillary antrostomies Description of Surgical Findings:: Christine is a 52-year-old female presents with evaluation of chronic sinus pressure nasal congestion as well as headache and left-sided facial pain. This is been ongoing with no relief with antibiotic antihistamine or nasal steroid therapy and a CT scan was performed which showed sinusitis with deviation nasal septum and hypertrophy of the inferior turbinates. She is counseled regarding the above procedure in hopes of relief of these complaints was eager to proceed. The risks, alternatives, potential benefits, and complications were discussed at length and any questions answered to the patient and/or caregiver' s satisfaction. Witnessed informed consent was obtained in the office, and the patient and/or caregiver was agreeable to proceed. Procedure went as follows: The patient was identified in the preoperative holding and brought to the operating room, was placed under general anesthesia and intubated. When appropriate anesthesia was obtained, pledgets soaked in a 50-50 mixture of oxymetazoline and 4% topical lidocaine were placed to decongest the nasal mucosa. The nasal septum was then injected beginning on the left side with 1% lidocaine with 100,000 epinephrine for a total of 6 cc. The pledgets were then removed and the left nasal cavity examined. There was noted to be significant nasal septal deviation to the [right]. Using a 15 blade scalpel, a hemitransfixion incision was then made in the left side and using the Roderick elevator a subperichondrial/periosteal flap was elevated. The septum was then transected at the bony cartilaginous junction and similar flap raised on the contralateral side. Using a Stoney forceps the septum was then sharply transected superiorly and the deviated portions removed with a Melody forceps. Any inferior bony spur was then removed with a chisel allowing for midline placement of the nasal septum. The hemitransfixion incision was then closed with interrupted 4-0 chromic gut suture followed by a 4 -0 plain quilting suture to reapproximate the mucosal flaps. Beginning on the left side using a 0? endoscope the nasal cavity examined. The insertion of the middle turbinate and uncinate process was then injected with 1 % lidocaine with 100,000 epinephrine for a 2 cc total, and a similar injection was then carried on the contralateral side. Upon returning to the left side the middle turbinate was medialized with a Grayson elevator. A large dayday bullosa was noted and the medial bony partition was resected. An accessory maxillary ostia was noted anterior to the uncinate process consistent with chronic maxillary disease and a maxillary antrostomy was then carried out as follows. The maxillary sinus ostia which is then probed with a double ball seeker. The uncinate process process was then outfractured with a J curette and transected with a backbiting forceps to join the natural ostia with the secondary ostia. This was then removed with the microdebrider creating a wide maxillary antrostomy. The ethmoid bulla was low lying and obstructing with polyps and thick mucous, and was then entered and partial ethmoidectomy was then carried out working posteriorly to anterior. Any polyps, scar, and mucous secretions were removed. Pledgets soaked in oxymetazoline were then placed for hemostasis and attention turned to the contralateral side. Similar procedure and findings were then carried out again with a secondary maxillary ostia and ethmoid disease noted. The pledgets were then removed and Floseal hemostatic agent was then applied. Attention was then turned to the inferior nasal turbinates. Anterior aspect of the inferior turbinate was then injected with 1% lidocaine with 100,000 epinephrine for a total of 1 cc bilaterally and then beginning on the left side a 15 blade scalpel used to create a stab incision in the anterior aspect of the turbinate. A caudal elevator was then used to elevate a submucosal plane. Using the microdebrider the anterior bony intervening submucosal was then removed resulting in excellent reduction of the inferior turbinate. Similar procedure was then completed on the contralateral side.Cline splints coated with Bacitracin ointment were then applied to each nasal cavity and secured at the columella with a single 3-0 Prolene suture. An NG tube was then placed to decompress the stomach and the patient returned to anesthesia, revived and extubated having tolerated the procedure well. Type of Anesthesia:: General Anesthesiologist: Maxmiino Connolly Special Medications: none Specimen's removed: septum and sinus contents, submucous resection of inferior turbinates Drains: none Estimated Blood Loss (mL): 100 mL Fluids Replaced: 1200 mL Grafts/Implants Used: Cline splints - Complications none - Admit VTE Documentation VTE Present on Admission: No VTE Mechan Device Prophylaxis: SCD's VTE Pharm Prophylaxis ordered?: No
--- NOTE | 2018-02-16 11:22 | PCM.DC ---
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 Call your doctor if your incision/area has: Continuous Slow Oozing, Sudden Increased Bleeding Call your doctor if you observe: Fever of 101 or Higher, Uncontrolled pain Allergies/Adverse Reactions: Allergies atorvastatin [From Lipitor] Allergy (Verified 02/16/18 08:16) Pain in joints Iodinated Contrast- Oral and IV Dye [CONTRASTS] Allergy (Verified 02/16/18 08:16) Anaphylaxis niacin Allergy (Verified 02/16/18 08:16) Shortness of breath carbamazepine [From Tegretol] Adverse Reaction (Severe, Verified 02/16/18 08:16) Other Medications to take at Discharge RX: Aspirin [Aspirin, Baby] 81 mg PO DAILY@0800 10/03/16 RX: Albuterol Sulfate [Ventolin Hfa] 2 puff INHALATION Q4H PRN PRN 05/15/17 pravastatin 20 mg tablet 20 mg PO QHS 09/18/17 RX: AcetaAZOLAMIDE [Diamox] 250 mg PO BID 12/17/17 RX: Fluticasone 0.05% [Flonase Nasal [place]] 1 spray NASAL DAILY 12/17/17 RX: Sennosides/Docusate Sodium [Senna-Docusate Sodium Tablet] 1 tab PO BID 12/18/17 omeprazole 20 mg capsule,delayed release 20 mg PO DAILY #30 cap 12/22/17 clopidogrel 75 mg tablet 75 mg PO DAILY #90 tab 01/01/18 nitroglycerin 0.4 mg sublingual tablet 0.4 mg SUBLINGUAL Q5-15M PRN #25 tab 01/01/18 hydrocortisone 20 mg tablet 10 mg PO DAILY tab 01/29/18 isosorbide mononitrate ER 30 mg tablet,extended release 24 hr 30 mg PO QAM #30 tab 02/07/18 Acetaminophen [Tylenol Arthritis] 1,300 mg PO BID 02/12/18 Azelastine HCl [Astelin] 1 spray NASAL QHS 02/12/18 Bupropion HCl [Wellbutrin Xl] 150 mg PO BID 02/12/18 Glycopyrrolate/Formoterol Fum [Bevespi Aerosphere Inhaler] 2 puff INHALATION BID 02/12/18 RX: Hydrocortisone 5 mg PO 1400 02/12/18 Primary Care Physician: Brooke Altamirano [Primary Care Provider] - Test Results: Test results from this visit will be discussed in further detail at your follow-up appointment, if applicable. Please Follow Up With: Maximino Tello MD When: 2 weeks
--- NOTE | 2018-02-16 11:35 | EKG12_ITS ---
Test Reason : Blood Pressure : / mmHG Vent. Rate : 081 BPM Atrial Rate : 081 BPM P-R Int : 170 ms QRS Dur : 086 ms QT Int : 390 ms P-R-T Axes : 075 035 079 degrees QTc Int : 453 ms Normal sinus rhythm Low voltage QRS (limb leads) Anteroseptal infarct , age undetermined T wave abnormality, consider lateral ischemia Abnormal ECG Confirmed by ANTONIO MATTHEW, ALCIDES ([id number]), writer editor ERMA COSTA ([id number]) on 02/22/2018 2:25:28 PM Referred By: Maximino Tello Confirmed By:ALCIDES ALVAREZ MD
[2018-02-16 11:45] LABS: Bedside Glucose 114 mg/dL (70-110)
== END 2018-02-16 13:15 | disposition home or self-care (01) ==
LOC: SDC 07:41 → AC 07:42
PROVIDERS: Anesthesiology; Family Provider Family Medicine; PCP Family Medicine; Visit Provider Otolaryngology
PROC: (CPT 30140; principal; 2018-02-16 09:20)
DX: J34.2 Deviated nasal septum (principal); J32.0 Chronic maxillary sinusitis; J32.2 Chronic ethmoidal sinusitis; J34.3 Hypertrophy of nasal turbinates; G47.33 Obstructive sleep apnea (adult) (pediatric); I11.9 Hypertensive heart disease without heart failure; E78.5 Hyperlipidemia, unspecified; K21.9 Gastro-esophageal reflux disease without esophagitis; M19.90 Unspecified osteoarthritis, unspecified site; I25.2 Old myocardial infarction; J44.9 Chronic obstructive pulmonary disease, unspecified; F17.200 Nicotine dependence, unspecified, uncomplicated; Z79.02 Long term (current) use of antithrombotics/antiplatelets; Z86.711 Personal history of pulmonary embolism; Z95.5 Presence of coronary angioplasty implant and graft; Z79.51 Long term (current) use of inhaled steroids; Z79.899 Other long term (current) drug therapy
CPT/HCPCS: 30140; 30520; 31254; 31256; 82962; 84484; 88304; 88305; 88311; 93005; J7120; J2405

== ENCOUNTER → 2018-03-21 06:55 | Outpatient (CLI) | payer OTHER, SELFPAY ==
--- NOTE | 2018-03-21 15:01 | PFTCOMP ---
COMPLETE PULMONARY FUNCTION TEST INTERPRETATION Brief HPI: Patient is a 52 year old female, currently under the care of Marilynn Jacinto, who presents to [facility] for complete pulmonary function tests secondary to diagnosis of COPD. Respiratory therapist reports good effort and reproducible results. Interpretation: Forced expiration spirometry shows a mild large airways obstructive ventilatory defect with an FEV1 of 99% predicted. There is no significant bronchodilator response by strict ATS criteria. Spirograms are of good quality and plateau slowly, indicating slowly emptying areas of the lungs. The respiratory flow volume loop shows decreased expiratory flow rates at all lung volumes consistent with airway obstruction. Lung volumes by body plethysmography show an elevated total lung capacity at 6.81 L, 137% predicted. All other lung volumes are increased symmetrically. Diffusion capacity by carbon monoxide is at the lower limit of normal at 68% predicted. The airway resistance is normal. No previous pulmonary function tests were available for review. Impression: Partially reversible mild large airways obstructive ventilatory defect with a reduction diffusing capacity consistent with patient's diagnosis of COPD.
== END ==
PROVIDERS: Family Provider Family Medicine; PCP Family Medicine; Visit Provider Nurse Practitioner Acute Care
DX: J44.9 Chronic obstructive pulmonary disease, unspecified (principal)
CPT/HCPCS: 94060; 94726; 94729

== ENCOUNTER → 2018-04-30 12:13 | Outpatient (CLI) | payer OTHER, SELFPAY ==
[2018-04-30 13:04] VITALS: PULSE 100; PULSE 80; PULSE 82; PULSE 97; PULSE 98; PULSE 99; O2SAT 94; O2SAT 95; O2SAT 97
--- NOTE | 2018-04-30 14:49 | WT_ITS ---
PSN 6 Minute Walk Test - 6 Minute Walk Test 6 Minute Walk Test: 6 Minute Walk Test PSN:6-Minute Walk Test Start: 04/30/18 13: 03 Freq: Status: Active Protocol: RESP.6MINW Document 04/30/18 13:04 SHEEBA (Rec: 04/30/18 13:06 SHEEBA [id number]) 6 Minute Walk Test Date Performed 04/30/18 Time Performed 10:20 Height 5 ft 5 in Weight: 75.75 kg Weight in Pounds 167.[address]: Marilynn Jacinto Assistive device used: None Pre-test Oxygen Delivery Method Room Air Pulse Ox (%) 97 Pulse Rate (60-100 beats/min) 80 Dyspnea Isidro Scale (0-10) 0 Exertion Isidro Scale (6-20) 6 1st minute Oxygen Delivery Method Room Air Pulse Ox (%) 95 Pulse Rate (60-100 beats/min) 97 2nd minute Oxygen Delivery Method Room Air Pulse Ox (%) 95 Pulse Rate (60-100 beats/min) 97 3rd minute Oxygen Delivery Method Room Air Pulse Ox (%) 94 Pulse Rate (60-100 beats/min) 98 4th minute Oxygen Delivery Method Room Air Pulse Ox (%) 97 Pulse Rate (60-100 beats/min) 99 5th minute Oxygen Delivery Method Room Air Pulse Ox (%) 95 Pulse Rate (60-100 beats/min) 97 6th minute Oxygen Delivery Method Room Air Pulse Ox (%) 95 Pulse Rate (60-100 beats/min) 100 Dyspnea Isidro Scale (0-10) 0 Exertion Isidro Scale (6-20) 11 Post-test Oxygen Delivery Method Room Air Pulse Ox (%) 97 Pulse Rate (60-100 beats/min) 82 Full Laps Walked 21 Partial Lap, Number of Tiles Walked 5 Total Distance Walked (ft) 1244 - Interpretation Interpretation: The patient was able to ambulate 1244 feet over the course of 6 minutes on room air with no assistive devices or breaks. No significant desaturation or tachycardia was noted. These findings are consistent with a normal exercise oximetry. - Recommendations Recommendations: No supplemental oxygen is indicated at this time.
== END ==
PROVIDERS: Family Provider Family Medicine; PCP Family Medicine; Visit Provider Nurse Practitioner Acute Care
DX: J44.9 Chronic obstructive pulmonary disease, unspecified (principal)
CPT/HCPCS: 94618

== ENCOUNTER → 2018-05-10 06:56 | Outpatient (CLI) | payer OTHER, SELFPAY ==
[2018-05-10 10:19] LABS: AST(SGOT) 8 U/L (15-37); Alanine Aminotransfer ALT/SGPT 22 U/L (13-56); Alkaline Phosphatase 53 U/L (45-117); Bilirubin, Direct 0.14 mg/dL (0.00-0.30); Cholesterol 121 mg/dL (200); Globulin 3.5 g/dL (2.2-4.2); High Density Lipoprotein 41 mg/dL; Protein, Total 7.5 g/dL (6.4-8.2); Triglycerides 134 mg/dL; Very Low Density Lipoprotein 27 mg/dL (5-40)
== END ==
PROVIDERS: Family Provider Family Medicine; PCP Family Medicine; Referring Provider Internal Medicine Cardiovascular Disease; Visit Provider Internal Medicine Cardiovascular Disease
DX: E78.5 Hyperlipidemia, unspecified (principal)
CPT/HCPCS: 36415; 80061; 80076

== ENCOUNTER → 2018-07-04 13:09 | Outpatient (CLI) | payer OTHER, SELFPAY ==
[2018-06-28 10:10] VITALS: BMI 28.3
--- NOTE | 2018-07-04 13:12 | BI_ITS ---
MAMMOGRAPHY - UNILATERAL DIAGNOSTIC: LEFT BREAST REASON FOR EXAM: Female, 52 years old. Left breast lump. PERTINENT HISTORY: Non-contributory. TECHNIQUE: Digital unilateral breast fidel (3D mammographic acquisition) in the CC and MLO projections. 2-D mediolateral oblique (MLO) and craniocaudad (CC) views of both breasts were obtained. CAD: Full Field Digital Mammography with Computer Added Detection was performed. COMPARISON: Comparison is made with prior study dated December 26, 2017 and November 16, 2016. FINDINGS: Breast Composition: The breasts are heterogeneously dense, which may obscure small masses. I suspect a 1.3 cm x 1 cm well-defined nodule in the retroareolar region of the left breast. There is also evidence of a 7 mm by nodule in the deep retroareolar region. Correlation with ultrasound is recommended. No other significant abnormalities are identified. BI/DIAG MAMM W/CAD, UNILAT IMPRESSION: 2 small nodules in the retroareolar region of the left breast as described. Correlation with ultrasound is recommended. ASSESSMENT CATEGORY: BIRADS Category 0: Incomplete. Need additional imaging evaluation. A letter regarding these results will be sent to the patient by the facility within 30 days. Approximately 10% of breast cancers are not detected by mammography. A normal mammogram should not delay biopsy of a clinically suspicious abnormality. Electronically Signed: Edwin Kahn MD at 14:53 EST Tel [phone], Service support ,
--- NOTE | 2018-07-04 13:13 | US_ITS ---
STUDY: ULTRASOUND BREAST - LEFT REASON FOR EXAM: Female, 52 years old. Palpable lump left breast. TECHNIQUE: Axial and longitudinal images of the LEFT breast were performed with a high resolution ultrasound transducer. COMPARISON: Comparison is made with prior mammogram done earlier today and prior mammogram dated December 26, 2017. FINDINGS: LEFT Breast: The pathologic abnormality corresponds to a 2.3 cm x 2.2 cm x 0.7 cm slightly echogenic nodule suggestive of a lipoma. Incidental note is made of a 7 mm x 7 mm x 3 mm lymph node at the 4:00 position of the breast at 2 cm from the nipple. This also evidence of retroareolar ductal dilatation. US/Breast Limited Unilateral IMPRESSION: The palpable abnormality corresponds to a 2.3 cm x 2.2 cm x 0.7 cm lipoma. ASSESSMENT CATEGORY: BIRADS Category 2: Benign. A letter regarding these results will be sent to the patient by the facility within 30 days. Electronically Signed: Edwin Kahn MD at 14:47 EST Tel [phone], Service support ,
== END ==
PROVIDERS: Family Provider Family Medicine; PCP Family Medicine; Referring Provider Obstetrics & Gynecology; Visit Provider Obstetrics & Gynecology
DX: N63.21 Unspecified lump in the left breast, upper outer quadrant (principal)
CPT/HCPCS: 76642; 77061; 77065; G0279

== ENCOUNTER 2018-08-08 10:02 | Outpatient (RCR) | payer OTHER, SELFPAY ==
[2018-07-24 07:36] VITALS: BMI 28.3
== END 2018-08-13 23:59 ==
LOC: NS 10:02
PROVIDERS: Family Provider Family Medicine; PCP Family Medicine; Visit Provider Family Medicine
DX: E66.3 Overweight (principal); Z71.3 Dietary counseling and surveillance
CPT/HCPCS: 97802

== ENCOUNTER → 2018-10-11 06:49 | Outpatient (CLI) | payer OTHER, SELFPAY ==
[2018-09-27 15:19] VITALS: BMI 28.3
[2018-10-11 07:56] LABS: AST(SGOT) 15 U/L (15-37); Alanine Aminotransfer ALT/SGPT 29 U/L (13-56); Albumin, Serum 3.9 g/dL (3.2-5.0); Alkaline Phosphatase 57 U/L (45-117); Bilirubin, Direct 0.09 mg/dL (0.00-0.30); Cholesterol 139 mg/dL (200); Globulin 3.3 g/dL (2.2-4.2); High Density Lipoprotein 55 mg/dL; Protein, Total 7.2 g/dL (6.4-8.2); Triglycerides 100 mg/dL; Very Low Density Lipoprotein 20 mg/dL (5-40)
== END ==
PROVIDERS: Family Provider Family Medicine; PCP Family Medicine; Referring Provider Internal Medicine Cardiovascular Disease; Visit Provider Internal Medicine Cardiovascular Disease
DX: E78.5 Hyperlipidemia, unspecified (principal)
CPT/HCPCS: 36415; 80061; 80076

== ENCOUNTER → 2019-08-01 10:36 | Outpatient (CLI) | payer OTHER, SELFPAY ==
[2019-07-22 15:07] VITALS: BMI 34.8
--- NOTE | 2019-08-01 10:38 | ECHOD_ITS ---
Reason For Study: CAD Procedure This was a 2D Doppler, Color Flow transthoracic echocardiogram. The study was technically difficult. Exam performed in department. Left Ventricle Normal size and thickness. The estimated ejection fraction is 45 %. Stage 1 diastolic dysfunction. Anterior [place] : Akinetic. Inferior [place] : Akinetic. Mid-anteroseptal : Severely Hypokinetic. There are regional wall motion abnormalities as specified. Right Ventricle Normal size and thickness. Normal systolic function. Atria Normal left atrium. Normal right atrium. Normal atrial septum. Mitral Valve The mitral valve is structurally normal. No prolapse or stenosis seen. Trivial mitral valve insufficiency. Tricuspid Valve Normal tricuspid valve. Trivial tricuspid valve insufficiency. Unable to estimate RV systolic pressure due to insufficient tricuspid regurgitant envelope. Aortic Valve Normal aortic valve. Trisinus/trileaflet aortic valve. Pulmonic Valve Normal pulmonic valve. Great Vessels Normal aortic root. Normal arch. Normal inferior vena cava. Inferior vena cava collapse with sniff. Pericardium/Pleural No pericardial effusion. Medication 22 gauge I.V. with prn adaptor inserted into right arm. Diluted definity 5ml given slow IV push to enhance endocardial definition. MMode/2D Measurements & Calculations LVIDd: 4.8 cm IVSd: 1.1 cm Ao root diam: 3.4 cm LVIDs: 3.5 cm LVPWd: 0.88 cm RVDd: 3.2 cm FS: 26.8 % LAV(MOD-bp): 39.6 ml LA A4 area: 16.0 cm2 LA dimension(2D): 3.9 cm LAV(MOD-bp) Indexed: 20.2 ml/m2 LAV(MOD-sp2): 37.2 ml LAV(MOD-sp4): 40.4 ml RA A4 area: 12.7 cm2 Doppler Measurements & Calculations MV E max siddhartha: 70.1 cm/sec Lat Peak E' Siddhartha: 5.9 cm/sec Med Peak E' Siddhartha: 6.2 cm/sec MV A max siddhartha: 98.0 cm/sec E/E' lat: 11.8 E/E' med: 11.3 MV E/A: 0.72 Ao V2 max: 140.6 cm/sec LV V1 max: 94.1 cm/sec PA V2 max: 76.9 cm/sec Ao max P.9 mmHg LV V1 max P.5 mmHg Interpretation Summary The estimated ejection fraction is 45 %. Stage 1 diastolic dysfunction. There are regional wall motion abnormalities as specified. Trivial mitral valve insufficiency. Trivial tricuspid valve insufficiency. Unable to estimate RV systolic pressure due to insufficient tricuspid regurgitant envelope. Compared to echo report dated 12/02/2016, no appreciable changes noted. Ordering Physician: Sterling Morgan Referring Physician: Brooke Altamirano Performed By: Kary Gil RDCS
== END ==
LOC: CVS 10:38
PROVIDERS: Family Provider Family Medicine; PCP Family Medicine; Referring Provider Internal Medicine Cardiovascular Disease; Visit Provider Internal Medicine Cardiovascular Disease
DX: Z01.810 Encounter for preprocedural cardiovascular examination (principal); I25.5 Ischemic cardiomyopathy; I25.10 Atherosclerotic heart disease of native coronary artery without angina pectoris; Z95.5 Presence of coronary angioplasty implant and graft
CPT/HCPCS: 93306; Q9957; A4216; C8929

== ENCOUNTER → 2019-08-09 12:18 | Outpatient (CLI) | payer OTHER, SELFPAY ==
[2019-07-22 15:07] VITALS: BMI 34.8
== END ==
LOC: CVS 12:19
PROVIDERS: Family Provider Family Medicine; PCP Family Medicine; Referring Provider Internal Medicine Cardiovascular Disease; Visit Provider Internal Medicine Cardiovascular Disease
DX: Z01.810 Encounter for preprocedural cardiovascular examination (principal); I25.10 Atherosclerotic heart disease of native coronary artery without angina pectoris; I25.5 Ischemic cardiomyopathy; Z95.5 Presence of coronary angioplasty implant and graft
CPT/HCPCS: 93017; 93350; J7040; A4216

== ENCOUNTER 2019-08-26 08:00 | Day surgery (SDC) | payer OTHER, SELFPAY ==
[2019-07-22 15:07] VITALS: BMI 34.8
--- NOTE | 2019-08-21 15:46 | EKG12_ITS ---
Test Reason : PREOP Blood Pressure : / mmHG Vent. Rate : 079 BPM Atrial Rate : 079 BPM P-R Int : 164 ms QRS Dur : 070 ms QT Int : 358 ms P-R-T Axes : 065 003 068 degrees QTc Int : 410 ms Normal sinus rhythm Low voltage QRS Borderline ECG Confirmed by SHAMA MATTHEW, MARKUS ([id number]), art editor ERMA COSTA ([id number]) on 08/22/2019 10:34:15 AM Referred By: Ej Johnson Confirmed By:JOSE SESAY MD
[2019-08-21 16:17] LABS: Hematocrit 45.4 % (37-47); Hemoglobin 14.8 g/dL (12.0-15.0); Mean Corp Hgb Conc 32.6 g/dL (32-36); Mean Corpuscular Hgb 31.2 pg (27.0-32.0); Mean Corpuscular Volume 95.6 fL (81-99); Mean Platelet Vol. 9.5 fl (6.2-12.0); Platelet Count 269 K/mm3 (150-450); RBC Distribution Width CV 12.6 % (11.6-14.6); Red Blood Count 4.75 M/mm3 (4.2-5.4); White Blood Count 9.1 K/mm3 (4.4-11.0)
[2019-08-21 16:23] LABS: Prothrombin Time (Protime)PT. 13.4 SECONDS (11.7-14.9)
[2019-08-21 16:24] LABS: Partial Thromboplast Time 27.2 Seconds (24.1-36.2)
[2019-08-21 16:55] LABS: ALB/GLOB Ratio 1.1 RATIO (0.9-2.4); AST(SGOT) 11 U/L (15-37); Alanine Aminotransfer ALT/SGPT 23 U/L (13-56); Albumin, Serum 3.9 g/dL (3.2-5.0); Alkaline Phosphatase 59 U/L (45-117); Anion Gap 8 (5-15); BUN 20 mg/dL (7-18); BUN/Creat Ratio 25.2 RATIO (10-20); Calcium,Total 8.7 mg/dL (8.5-10.1); Chloride 108 mmol/L (98-107); EST Glomerular Filtration Rate 80 mL/min (>60); Est Glom Filt Rate - Afr Amer 97 mL/min (>60); Globulin 3.6 g/dL (2.2-4.2); Glucose 90 mg/dL (74-106); Potassium 3.7 mmol/L (3.5-5.1); Protein, Total 7.5 g/dL (6.4-8.2); Sodium Level 139 mmol/L (136-145)
--- NOTE | 2019-08-25 18:30 | HP.PCM_ITS ---
History and Physical Date of Admission: 08/26/19 Surgical History and Physical Christine Eugene, a 53 year old female 2 0 0 0 2, presents for Vaginal Hysterectomy and AP Repair on August at 10:00. -- Cystocele, Midline and Incomplete Uterovaginal Prolapse -- Pt has been struggling with vaginal prolapse for a couple years. Prolapse has been getting worse, but decided to have intercourse. Prolapse was protruding for a few days continuous which caused a sore on her right labia. Once returned home last week, has been able to push back inside, but will fall back out. Never wanted to do treatment before, tried a pessary. Vaginal exam reveals grade 2 prolapse with right labial ulceration. Is causing severe dryness. Tried vaseline to get it back in, but she thinks this is causing more problems. Labia majoras redenned and inflammed, very tender. After trying several sizes of pessaries with them falling out, was able to keep a size 3 cube in. Vaginal Prolapse and has been present years. It occurs day.; It occurs at night. It is located in the vagina. Christine characterizes the quality painful. Severity is moderate; Severity is worsening; It is aggravated by intercourse. MEDICATIONS HISTORY: Current medications prescribed by our practice are: 1. [place] Jelly 0.025 %-0.01 % vaginal, 1 gm apply by fingertip to vagina twice weeekly Patient is also takin. Aspir-Low 81 mg tablet,delayed release, One tablet by mouth daily 2. Pepcid 20 mg tablet, One tablet by mouth twice daily 3. pravastatin 40 mg tablet, One tablet by mouth daily 4. acetazolamide 250 mg tablet, One tablet by mouth 3 x daily 5. Flonase Allergy Relief 50 mcg/actuation nasal spray,suspension, oen puff as directed 6. Plavix 300 mg tablet, One tablet by mouth daily 7. Anoro Ellipta 62.5 mcg-25 mcg/actuation powder for inhalation, daily 8. Flonase Allergy Relief 50 mcg/actuation nasal spray,suspension, daily 9. hydrocortisone 10 mg tablet, one tab in am, half tab pm 10. 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, Pseudotumor L Eye, Sleep Apnea Accidents - None Hospitalizations - Heart Attack, Childbirth urinary incontinence; Review of Systems: GENERAL - Denies fever, or chills SKIN - Denies skin changes EYES - Denies visual changes EARS - Denies difficulty hearing NOSE - Denies nasal congestion or bleeding MOUTH - Denies sore throat or difficulty swallowing NECK - Denies pain or swelling RESPIRATORY - Denies shortness of breath or wheezing CARDIOVASCULAR - Denies palpitations or chest pain GASTROINTESTINAL - Denies nausea, vomiting, diarrhea, constipation GENITOURINARY - Denies dysuria, frequency of urination, incontinence of urine MUSCULOSKELETAL - Denies joint or muscle pain NEUROLOGICAL - Denies localized numbness or weakness PSYCHIATRIC - Denies depression or anxiety ENDOCRINE - Denies heat or cold intolerance, weight loss or gain HEMATO-IMMUNOLOGIC - Denies excesive bleeding with cuts SOCIAL HISTORY: Alcohol Use - denies drinking Smoking - /4 PPD (ATQ) Diet - moderate, balanced diet Lifestyle - Exercise - minimal Seat Belt Use - always Employer - [employer] Job Description - RN Illicit Drug Use - denies use of street drugs Sexual Activity - single sexual partner Residence - Lives w/ Hours Worked - Travels to nursing homes in [place] Spouse-Sig Other Name - Juan Eugene Spouse-Sig Other Occupation - Director Of Compliance Spouse-Sig Other Phone No - [phone] Children Name(s) - 2 living Control - Tubal FAMILY HISTORY: MENSTRUAL HISTORY: LMP Known?- Postmenopausal, LMP - 06/16/16, Age Onset Menarche - 14 PAST PREGNANCIES: Total Pregnancies - 2; Full Term Pregnancies - 2; Premature - 0; Abortions, Induced - 0; Abortions, Spontaneous - 0; Ectopics - 0; Multiple Births - 0; Living Children - 2 SURGICAL HISTORY: 1. Tonsillectomy, Adenoidectomy 1969 2. Tubal Ligation 1995 3. 06/27/2016 Cardiac Stent Placement PHYSICAL EXAM BP- 130/72 Sitting, Right arm, regular cuff Weight- 210.94935 lbs Height- 64.5 inch BMI:35.56 CONSTITUTIONAL - NAD, well nourished, and well developed SKIN - No rash, lesions, or ulcers HEENT - Normocephalic, PERRLA, EOMI NECK - No nodes, no nuchal rigidity and thyroid normal size and texture LYMPH NODES - Palpation of lymph nodes in neck and groins within normal limits LUNGS - CTA x2 without wheezes, crackles or rales CARDIAC - Regular rate and rhythm without rubs, murmurs, or gallops BREAST - No dominant masses, no tenderness, no axillary adenopathy, no nipple discharge, no skin changes ABDOMEN - Without hepatosplenomegaly, distention, masses, rebound, or guarding; normal bowel sounds; no hernias EXTREMITIES - No edema or calf tenderness NEUROLOGICAL - Cranial nerves II-XII grossly intact PSYCHIATRIC - A and O to time, place, person, mood and affect External Genitial Vagina - single ulcer noted approx 1-2 cm at posterior R labia majora, no other lesions Urethra/Urethral Meatus - cystocele, tender, and prolapses to and through introitus with valsalva Bladder - large cystocele Vagina - atrophic changes noted. Large cystocele, minimal rectocele Cervix - incomplete prolapse noted with valsalva Uterus - normal size, mobile and no tenderness ASSESSMENT/PLAN: 1. Cystocele, Midline and Incomplete Uterovaginal Prolapse Large cystocele noted, with uterine prolapse. Planning surgery; pessary use until surgery. Plan Vag Hyst and AP Repair. Discussed RBAs and all questions answered. Cardiac clearance obtained Off Plavix for surgery. Hx of ME.
[2019-08-26] VITALS (14 sets, daily range): BP systolic 91–135; BP diastolic 52–75; PULSE 61–87; RESP 16–18; TEMP 36.4–37.1; O2SAT 91–99; BMI 35.1
--- NOTE | 2019-08-26 | HYST_PTH ---
PATIENT: GURJIT CATALAN LOC: [facility] U#:[id number] AGE/SX: 53/F ROOM: RE08/26/[address]: Dr. Ej Johnson MD : [id number] BED: DIS: 08/27/2019 SPEC #: [id number] RECD: 08/26/19 14:23 STATUS: LEEANN CASSI #: [id number] SABIHA: 08/26/19 00:[address]: Ej Johnson DEPT: SURGICAL PATHOLOGY RECD BY: Rei Maya ENTERED: 08/26/19 14:23 SP TYPE: HYSTERECT OTHR DR: Dr. Brooke Altamirano MD Tissues: Uterus, NOS Procedures: Surgery Specimen Level V HEADER OPERATION: Vaginal hysterectomy, A & P repair PRE-OP DIAGNOSIS: Cystocele, midline and incomplete uterovaginal prolapse TISSUE SUBMITTED: Uterus MICROSCOPIC DIAGNOSIS Uterus, hysterectomy and A & P repair: Cervix - chronic cystic cervicitis. Endometrium - proliferative endometrium. Myometrium - focal superficial adenomyosis. Vaginal mucosa - fragments of squamous mucosa with mild chronic inflammation. JOSELIN:geraldine 08/27/19 MICROSCOPIC DESCRIPTION Slides are reviewed. GROSS DESCRIPTION Received in fixative is one container labeled with the patient's name and designated uterus. The specimen consists of a uterus with attached cervix without fallopian tubes and ovaries measuring 8 x 4.5 x 3.5 cm and weighing 60 gm. The ectocervix is grossly unremarkable. The cervical os is oval in contour. The endocervical canal measures 3 cm in length and is grossly unremarkable. The triangular endometrial cavity measures 3.5 x 2.5 cm. The reddish-bone velvety endometrium measures up to 0.2 cm in thickness. The myometrium measures 1.5 cm in average thickness and is free of mass lesions. Also present in the specimen container are glistening fragments of bone mucosa with hemorrhagic submucosal tissue measuring in aggregate 6.5 x 4.5 x 0.5 cm. No mucosal mass lesions are identified. Dictaphone Typist sections are submitted in seven cassettes as follows: 1 - anterior cervix, 2 - posterior cervix, 3 & 4 - anterior uterine wall, 5 & 6 - posterior uterine wall, 7 - vaginal mucosa. / AM:geraldine 08/26/19 TC:5 CPT: 15036
[2019-08-26] MEDS: Lactated Ringers 1,000 ML 100 ML IV ×2 (08:21→12:45)
[2019-08-26] MEDS: Heparin Injection (Vial) 5,000 UNIT/ML VIAL 5000 UNIT SC (15:27)
[2019-08-26] MEDS: Dextrose 5%-Lactated Ringers 1,000 ML 150 ML IV ×2 (15:27→21:44)
[2019-08-26] MEDS: Ketorolac 15 MG/ML Vial IV ×2 (15:27→18:34)
[2019-08-26] MEDS: 0.9% Saline Lock 10 ML Syringe IV ×2 (15:29→18:34)
--- NOTE | 2019-08-26 16:50 | NURSING ---
scop patch removed from behind pt left ear- pt states severe headache after applied and requested to have d/c'ed
[2019-08-26] MEDS: oxyCODONE 5 MG Tablet PO (17:58)
[2019-08-26] MEDS: Enoxaparin 40 MG/0.4 ML Syringe SC (18:34)
[2019-08-26] MEDS: Ipratropium/Albuterol Sulfate 3 ML AMPUL.NEB INHALATION (19:24)
[2019-08-26] MEDS: BETHANECHOL CHLORIDE 25 MG TABLET 12.5 MG PO (21:45)
--- NOTE | 2019-08-26 22:15 | PCM.OPRPT ---
Report of Operation Date of Procedure: 08/26/19 Pre-Operative Diagnosis: Incomplete Uterovaginal Prolapse, Cystocele, Rectocele Post-Operative Diagnosis: Incomplete Uterovaginal Prolapse, Cystocele, Rectocele Surgery/Procedure Performed:: Vaginal Hysterectomy and Anterior Posterior Repair Description of Surgical Findings:: 6 cm uterus with normal-appearing fallopian tubes and ovaries. Cystocele which protrudes 3 cm outside the introitus and moderate rectocele. Short vagina. cross enterprise integrator: Yee Malave Type of Anesthesia:: General - Endotracheal Anesthesiologist: Bigg Jimenez Specimen's removed: Uterus and vaginal mucosa Drains: Cavazos to straight drain Estimated Blood Loss (mL): 100 cc Fluids Replaced: Crystalloid Description of Procedure: Surgeon: Ej Johnson MD, FACOG Indications: This is a 53-year-old who is been having problems with elevated pressure and uterovaginal prolapse. Conservative measures including pessary have not been helpful. Given this the patient desires that we proceed the above procedure. She has been counseled regarding the risk and indications of this procedure including the possibility of bleeding, infection, and injury to surrounding structures such as bowel bladder. All questions were answered. Procedure: Patient was taken to the operating room where after induction of general anesthesia she was placed in the dorsal lithotomy position and prepped and draped in the usual sterile fashion. A Cavazos catheter was placed. Anterior cervix was grasped with a tenaculum and anterior cervix circumscribed with cautery on a setting of 35 W coagulation. Anterior vaginal mucosa was undermined and anterior peritoneum was easily entered. The posterior aspect of the cervix was circumscribed with a knife and posterior peritoneum easily entered. Progressive bites were taken on either side of the uterine cervix and each pedicle ligated with 0 Vicryl suture. Superior pedicles were ligated ?2 with 0 Vicryl suture and sidewall pedicles were examined and oversewn where necessary with [id number] 0 Vicryl suture to achieve hemostasis. Posterior vaginal cuff was oversewn with running locked 0 Vicryl suture. Hemostasis was noted and peritoneum was closed in a pursestring fashion incorporating superior pedicles into the stitch. Hemostasis was noted. Attention was turned toward the anterior repair portion of the procedure. Anterior vaginal mucosa was undermined and divided and then imbricated toward the midline with interrupted 0 Vicryl sutures. Vaginal mucosa was trimmed and then closed with interrupted 2-0 chromic suture. Vaginal cuff was then closed front to back with interrupted [id number] 0 Vicryl suture. Hemostasis was noted. Attention was turned toward the posterior repair portion of the procedure. Remnants of the hymenal ring were grasped with Allises and a V-shaped incision was made in the perineum. Rectovaginal mucosa was then undermined divided and then imbricated toward the midline with interrupted 0 Vicryl suture. The vaginal mucosa was somewhat atrophic. Vaginal mucosa was trimmed and then closed with running locked 2-0 chromic suture. Remnants of the bulbocavernosus muscles were identified and brought toward the midline with a single [id number] 0 Vicryl suture and perineum was closed in the usual fashion with running and subcuticular, and [id number] 2-0 chromic suture. Hemostasis was noted. Cavazos catheter was again opened and clear yellow urine was noted. Vagina was packed with about one third of an iodoform tape. Patient tolerated the procedure well was taken to recovery room in satisfactory condition; sponge instrument and needle counts were all reportedly correct. Estimated blood loss for the case was 100 cc. Cefotan 2 g IV was given prior to beginning the operative procedure. There were no apparent complications of the surgery. Specimen to pathology was uterus and vaginal mucosa.
--- NOTE | 2019-08-26 22:21 | DCINST_ITS ---
Discharge Diet: No Restrictions Discharge Activity: Return to Normal Activity, May Not Drive - while taking narcotic pain medications., May Shower May resume sexual activity in: 6-8 weeks Call your doctor if your incision/area has: Continuous Slow Oozing, Sudden Increased Bleeding, Increased Pain/ Swelling, Increased Redness, Foul Smelling Discharge Call your doctor if you observe: Fever of 101 or Higher, Inability to urinate, Inability to have a bowel movement, Using more than one pad per hour Allergies/Adverse Reactions: Allergies bupropion [From Wellbutrin] Allergy (Intermediate, Verified 08/26/19 08:) rash and ringing in ears atorvastatin [From Lipitor] Allergy (Verified 08/26/19 08:) Pain in joints Iodinated Contrast Media [CONTRASTS] Allergy (Verified 08/26/19:) Anaphylaxis niacin Allergy (Verified 08/26/19:) Shortness of breath carbamazepine [From Tegretol] Adverse Reaction (Severe, Verified 08/26/19 08:) Other Medications to take at Discharge Aspirin [Aspirin, Baby] 81 mg PO DAILY@0800 10/03/16 Albuterol Sulfate [Ventolin Hfa] 2 puff INHALATION Q4H PRN PRN 05/15/17 Sennosides/Docusate Sodium [Senna-Docusate Sodium Tablet] 1 tab PO BID 12/18/17 Acetaminophen [Tylenol Arthritis] 1,300 mg PO BID 02/12/18 Acetaminophen [Tylenol Tablet] 650 mg PO Q4H PRN PRN tab 02/16/18 acetazolamide 250 mg tablet 250 mg PO BID 09/27/18 fluticasone propionate 50 mcg/actuation nasal spray,suspension 1 spray INTRANASAL DAILY 09/27/18 omeprazole 20 mg capsule,delayed release 20 mg PO DAILY #90 cap 01/17/19 clopidogrel 75 mg tablet 75 mg PO DAILY #30 tab 07/22/19 isosorbide mononitrate 30 mg tablet,extended release 24 hr 30 mg PO QAM #30 tab 07/22/19 nitroglycerin 0.4 mg sublingual tablet 0.4 mg SUBLINGUAL Q5-15M PRN #25 tab 07/22/19 pravastatin 20 mg tablet 20 mg PO QHS #30 tab 07/22/19 Umeclidinium Brm/Vilanterol Tr [Anoro Ellipta 62.5-25 Mcg INH] 1 puff INHALATION QODAY 08/19/19 Oxycodone [Oxyir] 5 mg PO Q6H PRN PRN 7 Days #10 tab 08/26/19 The following prescriptions were given: Oxycodone [Oxyir] 5 mg PO Q6H PRN PRN 7 Days #10 tab PRN Reason: Pain Score 6-10/10 Transmission Status: Received by [facility] Orders to be completed after discharge: 12 Lead EKG [CVS] Time Frame: 08/19/19, Facility: [facility], Location: Cardiovascular Services Basic Metabolic Profile (BMP) Time Frame: 08/19/19, Facility: [facility], Location: Laboratory CBC-Complete Blood Cnt No Diff Time Frame: 08/19/19, Facility: [facility], Location: Laboratory Primary Care Physician: Brooke Altamirano MD [Primary Care Provider] - Test Results: Test results from this visit will be discussed in further detail at your follow- up appointment, if applicable. Please Follow Up With: Ej Johnson MD When: 2 to 3 weeks
[2019-08-26] MEDS: Acetaminophen 500 MG Tablet 1000 MG PO (22:26)
[2019-08-26] MEDS: Senna/Docusate Sodium 1 Tablet PO (22:26)
[2019-08-26] MEDS: Pravastatin 20 MG Tablet PO (22:27)
[2019-08-26] MEDS: AcetaZOLAMIDE 250 MG Tablet PO (23:05)
[2019-08-27] MEDS: Ketorolac 15 MG/ML Vial IV ×2 (00:08→05:36)
[2019-08-27] MEDS: 0.9% Saline Lock 10 ML Syringe IV ×2 (00:08→05:38)
[2019-08-27 03:37] VITALS: BP 97/59; PULSE 77; RESP 16; TEMP 37; O2SAT 96
[2019-08-27] MEDS: Dextrose 5%-Lactated Ringers 1,000 ML 150 ML IV (05:08)
[2019-08-27 06:13] LABS: Hemoglobin 12.4 g/dL (12.0-15.0); Mean Corp Hgb Conc 31.8 g/dL (32-36); Mean Corpuscular Hgb 31.2 pg (27.0-32.0); Mean Corpuscular Volume 98.2 fL (81-99); Mean Platelet Vol. 9.7 fl (6.2-12.0); Platelet Count 197 K/mm3 (150-450); RBC Distribution Width CV 12.7 % (11.6-14.6); RBC Distribution Width SD 45.8 fl (35.1-43.9); Red Blood Count 3.97 M/mm3 (4.2-5.4); White Blood Count 9.1 K/mm3 (4.4-11.0)
--- NOTE | 2019-08-27 06:48 | PCM.PN.OB ---
Subjective: Patient without complaints. Tolerating diet well. Voiding on own after taking out Cavazos catheter. Some bladder spasms which resolved with Urecholine and removing catheter. Minimal vaginal bleeding reported. - Physical Exam Vitals/I&O's: Vital Signs Temp Pulse Resp BP Pulse Ox 98.6 F 77 16 97/59 L 96 08/27/19 03:37 08/27/19 03:37 08/27/19 03:37 08/27/19 03:37 08/27/19 03:37 Oxygen Flow Rate (L/min) 3 Oxygen Delivery Method Room Air Weight: 210 lb 15.718 oz Body Mass Index (BMI) 35.1 Intake and Output for Last 24 Hours 08/25/19 08/26/19 08/27/19 23:59 23:59 23:59 Intake Total 3181.67 / 3781.67 1757.5 / 1757.5 Output Total 465 / 1715 1850 / 1850 Balance 2716.67 / 2066.67 -92.5 / -92.5 Comment: Vaginal pack out with minimal vaginal bleeding. Hemoglobin okay. uop ok. Laboratory Results 08/27/19 05:50: WBC 9.1, RBC 3.97 L, Hgb 12.4, Hct 39.0, MCV 98.2, MCH 31.2, MCHC 31.8 L, RDW Std Deviation 45.8 H, RDW Coeff of Cristal 12.7, Plt Count 197, MPV 9.7 08/27/19 05:50: Creatinine Pending, Est GFR (MDRD) Af Amer Pending, Est GFR (MDRD) Non-Af Pending Current Medications Acetaminophen (Tylenol) 1,000 mg PO BID [facility] Last Admin: 08/26/19 22:26 Dose: 1,000 mg Documented by: Acetaminophen (Tylenol) 650 mg PO Q4H PRN PRN PRN Reason: Mild-Moderate Pain (1-5/10) Acetazolamide (Diamox) 250 mg PO BID [facility] Last Admin: 08/26/19 23:05 Dose: 250 mg Documented by: Albuterol Sulfate (Ventolin Aerosols) 2.5 mg INHALATION Q4H PRN PRN PRN Reason: SOB/WHEEZE Albuterol/Ipratropium (Duoneb) 3 ml INHALATION Q6HWA.RT [facility] Last Admin: 08/26/19 19:24 Dose: 3 ml Documented by: Aspirin (Aspirin, Baby) 81 mg PO DAILY@0800 [facility] Bethanechol Chloride (Bethanechol Chloride) 12.5 mg PO TID PRN PRN PRN Reason: BLADDER SPASM Last Admin: 08/26/19 21:45 Dose: 12.5 mg Documented by: Clopidogrel Bisulfate (Plavix) 75 mg PO DAILY [facility] Fluticasone Propionate (Flonase Nasal [place]) 1 spray NASAL DAILY [facility] Hydromorphone HCl (Dilaudid Inj) 0.5 mg IV Q3H PRN PRN PRN Reason: Pain Score 4-10/10 Dextrose/Lactated Ringer's () 1,000 mls @ 150 mls/hr IV .Q6H40M [facility] Last Admin: 08/27/19 05:08 Dose: 150 mls/hr Documented by: Sodium Chloride () 250 mls @ 15 mls/hr IV .[id number] PRN PRN Reason: Saline Flush Sodium Chloride () 250 mls @ 15 mls/hr IV .[id number] PRN PRN Reason: Additional IVPB Infusion Isosorbide Mononitrate (Imdur) 30 mg PO QAM [facility] Ketorolac Tromethamine (Toradol) 15 mg IV Q6 [facility] Stop: 08/31/19 13:01 Last Admin: 08/27/19 05:36 Dose: 15 mg Documented by: Nitroglycerin (Nitrostat) 0.4 mg SUBLINGUAL Q5M PRN PRN Reason: chest pain Ondansetron HCl (Zofran) 4 mg IV Q4H PRN PRN PRN Reason: NAUSEA Oxycodone HCl (Oxyir) 5 mg PO Q4H PRN PRN PRN Reason: Pain Score 4-10/10 Last Admin: 08/26/19 17:58 Dose: 5 mg Documented by: Pantoprazole Sodium (Protonix) 20 mg PO DAILY [facility] Pravastatin Sodium (Pravachol) 20 mg PO QHS [facility] Last Admin: 08/26/19 22:27 Dose: 20 mg Documented by: Senna/Docusate Sodium (Senokot-S, Calli-Colace) 1 tablet PO BID [facility] Last Admin: 08/26/19 22:26 Dose: 1 tablet Documented by: Simethicone (Mylicon) 80 mg PO PCHS [facility] Last Admin: 08/26/19 22:26 Dose: 80 mg Documented by: Sodium Chloride () 10 - 40 ml IV UD PRN PRN Reason: SALINE FLUSH Last Admin: 08/27/19 05:38 Dose: 10 ml Documented by: Medical Necessity - Tobacco Use Smoking Status: Current every day smoker Tobacco Use: Cigarettes Assessment/Plan All Active Problems (Last Updated 07/22/19 @ 15:13 by Vonda Liao) Pre-operative cardiovascular examination (Acute) Prolapsed uterus (Acute) Prolapsed bladder (Acute) History of left heart catheterization (Acute 02/07/18) History of adrenal insufficiency (Resolved) Syncope (Acute) Transient hypotension (Acute) Sinusitis (Acute) Doing well postoperative day #1 status post vaginal hysterectomy and anterior posterior repair. Will release to home with routine instructions.
[2019-08-27 06:50] LABS: EST Glomerular Filtration Rate 80 mL/min (>60); Est Glom Filt Rate - Afr Amer 96 mL/min (>60); Estimated Creatinine Clearance 74.02 ml/min
[2019-08-27 07:20] VITALS: PULSE 88; RESP 21
[2019-08-27] MEDS: Ipratropium/Albuterol Sulfate 3 ML AMPUL.NEB INHALATION (07:23)
[2019-08-27 07:25] VITALS: BP 108/66; PULSE 76; RESP 18; TEMP 37.2; O2SAT 95
[2019-08-27] MEDS: Fluticasone 0.05% 1 SPRAY NASAL.SRY NASAL (07:38)
[2019-08-27] MEDS: Senna/Docusate Sodium 1 Tablet PO (07:39)
[2019-08-27] MEDS: Clopidogrel Bisulfate 75 MG Tablet PO (07:39)
[2019-08-27] MEDS: Aspirin 81 MG TAB.CHEW PO (07:39)
[2019-08-27] MEDS: AcetaZOLAMIDE 250 MG Tablet PO (07:39)
[2019-08-27] MEDS: Pantoprazole Sodium 20 MG Tablet PO (07:40)
[2019-08-27] MEDS: Isosorbide Mononitrate 30 MG Tablet PO (07:40)
[2019-08-27] MEDS: Acetaminophen 500 MG Tablet 1000 MG PO (07:41)
--- NOTE | 2019-08-27 07:44 | NURSING ---
Pt. requesting to take all AM meds at this time-- to be on schedule when she returns home. Same completed.
[2019-08-27 07:51] VITALS: O2SAT 95
== END 2019-08-27 09:33 | disposition home or self-care (01) ==
LOC: SDC 08:00 → AC 08:01 → MS3 08-28 07:36
PROVIDERS: Family Provider Family Medicine; PCP Family Medicine; Referring Provider Obstetrics & Gynecology; Visit Provider Obstetrics & Gynecology
PROC: (CPT 58260; principal; 2019-08-26 09:50)
DX: N81.2 Incomplete uterovaginal prolapse (principal); N72 Inflammatory disease of cervix uteri; N80.0 Endometriosis of uterus; I25.2 Old myocardial infarction; F17.210 Nicotine dependence, cigarettes, uncomplicated; E27.40 Unspecified adrenocortical insufficiency; I10 Essential (primary) hypertension; I25.10 Atherosclerotic heart disease of native coronary artery without angina pectoris; J44.9 Chronic obstructive pulmonary disease, unspecified; G47.30 Sleep apnea, unspecified; K21.9 Gastro-esophageal reflux disease without esophagitis; K44.9 Diaphragmatic hernia without obstruction or gangrene; E78.00 Pure hypercholesterolemia, unspecified; Z79.899 Other long term (current) drug therapy; Z79.82 Long term (current) use of aspirin; Z79.02 Long term (current) use of antithrombotics/antiplatelets; Z79.51 Long term (current) use of inhaled steroids; Z95.5 Presence of coronary angioplasty implant and graft
CPT/HCPCS: 57260; 58260; 36415; 80053; 82565; 85027; 85610; 85730; 86850; 86900; 86901; 88307; 93005; 94640; 99251; 99406; J7120; A4216; G0463; J2405

== ENCOUNTER → 2020-03-31 11:21 | Outpatient (CLI) | payer OTHER, SELFPAY ==
[2020-03-31 09:28] VITALS: BMI 37.0
[2020-03-31 13:19] LABS: AST(SGOT) 8 U/L (15-37); Alanine Aminotransfer ALT/SGPT 16 U/L (13-56); Albumin, Serum 3.9 g/dL (3.2-5.0); Alkaline Phosphatase 69 U/L (45-117); Cholesterol 220 mg/dL (200); High Density Lipoprotein 40 mg/dL; Protein, Total 7.9 g/dL (6.4-8.2); Triglycerides 259 mg/dL; Very Low Density Lipoprotein 52 mg/dL (5-40)
== END ==
PROVIDERS: PCP Family Medicine; Referring Provider Internal Medicine Cardiovascular Disease; Visit Provider Internal Medicine Cardiovascular Disease
DX: I25.10 Atherosclerotic heart disease of native coronary artery without angina pectoris (principal); E78.5 Hyperlipidemia, unspecified
CPT/HCPCS: 36415; 80061; 80076

== ENCOUNTER → 2020-12-07 09:17 | Outpatient (CLI) | payer OTHER, SELFPAY ==
[2020-12-07 08:19] VITALS: BMI 43.1
--- NOTE | 2020-12-07 09:22 | RAD_ITS ---
STUDY: X-RAY CHEST REASON FOR EXAM: Female, 54 years old. GABRIEL TECHNIQUE: PA and lateral views of the chest. COMPARISON: Comparison is made with prior study dated 02/02/2018 FINDINGS: Hyperinflation. Mild degree of increased markings at the lung bases suggesting mild bibasilar scarring. There is no demonstrated pleural abnormality. Normal size heart. Normal mediastinum and judy. Normal visualized pulmonary arteries. Normal visualized aortic arch and descending thoracic aorta. There are diffuse degenerative changes of the visualized thoracic spine. Normal visualized ribs, clavicles, and shoulders. There is no demonstrated abnormality of the visualized soft tissue structures of the upper abdomen. RAD/Chest PA and Lateral IMPRESSION: Hyperinflation. Mild degree of the linear scarring at the lung bases. Electronically Signed: Edwin Kahn MD at 10:02 EDT , Service support ,
[2020-12-07 10:17] LABS: Absolute Lymphocyte Count 1.74 X10^3/uL (0.83-4.51); Absolute Neutrophil Count 3.9 X10^3/uL (2.0-7.7); Basophil# 0.03 X10^3/uL; Basophil% 0.5 % (0-1); Eosinophil# 0.17 X10^3/uL; Eosinophils% 2.7 % (0-5); Hematocrit 47.1 % (37-47); Lymphocyte # 1.74 X10^3/ul (0.83-4.51); Lymphocyte % 27.3 % (19-41); Mean Corp Hgb Conc 31.8 g/dL (32-36); Mean Corpuscular Volume 94.2 fL (81-99); Mean Platelet Vol. 9.8 fl (6.2-12.0); Monocyte# 0.55 X10^3/uL; Monocyte% 8.6 % (0-10); NRBC Flagged by Analyzer 0 % (0-5); Neutrophil # 3.88 X10^3/uL (2.7-7.7); Neutrophil % 60.7 % (47-70); Platelet Count 274 K/mm3 (150-450); RBC Distribution Width CV 13.2 % (11.6-14.6); RBC Distribution Width SD 45.4 fl (35.1-43.9); White Blood Count 6.4 K/mm3 (4.4-11.0)
[2020-12-07 10:46] LABS: Anion Gap 5 (5-15); BNP,B-Type NATRIURETIC PEPTIDE 52.1 pg/mL (0-100); BUN 11 mg/dL (7-18); BUN/Creat Ratio 15.1 RATIO (10-20); Calcium,Total 9.2 mg/dL (8.5-10.1); Chloride 105 mmol/L (98-107); Creatinine, Serum 0.73 mg/dL (0.55-1.02); EST Glomerular Filtration Rate 89 mL/min (>60); Est Glom Filt Rate - Afr Amer 107 mL/min (>60); Glucose 99 mg/dL (74-106); Potassium 4.2 mmol/L (3.5-5.1); Sodium Level 138 mmol/L (136-145)
[2020-12-07 10:58] LABS: AST(SGOT) 11 U/L (15-37); Alanine Aminotransfer ALT/SGPT 18 U/L (13-56); Albumin, Serum 3.8 g/dL (3.2-5.0); Alkaline Phosphatase 66 U/L (45-117); Cholesterol 148 mg/dL (200); Globulin 3.5 g/dL (2.2-4.2); High Density Lipoprotein 39 mg/dL; Protein, Total 7.3 g/dL (6.4-8.2); Triglycerides 217 mg/dL; Very Low Density Lipoprotein 43 mg/dL (5-40)
== END ==
PROVIDERS: Internal Medicine Cardiovascular Disease; PCP Family Medicine; Referring Provider Physician Assistant Medical; Visit Provider Physician Assistant Medical
DX: I25.5 Ischemic cardiomyopathy (principal); I25.119 Atherosclerotic heart disease of native coronary artery with unspecified angina pectoris; R06.00 Dyspnea, unspecified; E78.5 Hyperlipidemia, unspecified
CPT/HCPCS: 36415; 71046; 80048; 80061; 80076; 83880; 85025

== ENCOUNTER → 2020-12-24 07:11 | Outpatient (CLI) | payer OTHER, SELFPAY ==
[2020-12-07 08:19] VITALS: BMI 43.1
--- NOTE | 2020-12-24 07:14 | ECHOCS_ITS ---
Reason For Study: DYSPNEA/SOB Procedure This was a 2D Doppler, Color Flow transthoracic echocardiogram. The study was technically difficult. Due to body habitus. Contrast injection was performed. Left Ventricle Normal LV size. The estimated ejection fraction is 47 %. Left ventricular systolic function is lower limits of normal. Mild to moderate segmental systolic dysfunction (see wall motion). [place] : Dyskinetic. Mid-Anterior : Mildly hypokinetic. Mid-anteroseptal : Hypokinetic. Right Ventricle Normal RV size. Normal systolic function. Atria Normal left atrium. Normal right atrium. Mitral Valve Normal mitral valve. Tricuspid Valve Normal tricuspid valve. Aortic Valve The aortic valve is not well visualized. Pulmonic Valve The pulmonic valve is not well visualized. Great Vessels Normal aortic root. The pulmonary artery is normal size. Normal inferior vena cava. Pericardium/Pleural No pericardial effusion. Medication Diluted definity 3.0ml given slow IV push to enhance endocardial definition. MMode/2D Measurements & Calculations LVIDd: 4.8 cm IVSd: 0.85 cm LAV(MOD-bp): 41.9 ml LVIDs: 3.5 cm LVPWd: 1.1 cm RVDd: 3.2 cm FS: 28.7 % LAV(MOD-bp) Indexed: 21.5 ml/m2 LAV(MOD-sp2): 41.8 ml LAV(MOD-sp4): 38.1 ml LA dimension(2D): 3.9 cm LA A4 area: 15.3 cm2 RA A4 area: 8.9 cm2 Time Measurements MV dec time: 0.29 sec Doppler Measurements & Calculations MV E max siddhartha: 79.2 cm/sec Lat Peak E' Siddhartha: 8.8 cm/sec Med Peak E' Siddhartha: 7.7 cm/sec MV A max siddhartha: 100.3 cm/sec E/E' lat: 9.0 E/E' med: 10.2 MV E/A: 0.79 Ao V2 max: 145.6 cm/sec LV V1 max: 108.2 cm/sec Ao max P.5 mmHg LV V1 max P.7 mmHg ECHO/Echo Complete W/ Contrast Interpretation Summary Normal LV size. The estimated ejection fraction is 47 %. Left ventricular systolic function is lower limits of normal. Mild to moderate segmental systolic dysfunction (see wall motion). Contrast injection was performed. Compared to prior study, there is no signific ant change. Ordering Physician: Parvin^Tracie^Melita^^HEENA PA Referring Physician: Brooke Altamirano Performed By: Adeola Cuadra, HOOD, RVT
--- NOTE | 2020-12-24 13:07 | STRESSREP ---
Stress Test Report Pharmacologic myocardial perfusion stress test. 55-year-old lady with a history of previous anterior wall myocardial infarction. Stress protocol: Resting EKG demonstrates normal sinus rhythm with a rate of 76 bpm. Poor R wave progression is noted resting blood pressure is 122/76 mmHg. 0.4 mg of regadenoson was infused per usual protocol followed by Intravenous saline flush injection continuous EKG monitoring was performed. The maximum heart rate attained was 100 bpm which was 60% of maximum predicted heart rate the maximum workload was 1 metabolic equivalent. At rest there were no ST or T wave changes noted to suggest abnormal flow reserve and at peak infusion nonspecific ST changes were noted. Myocardial perfusion protocol. 15.0 mCi of technetium 99m sestamibi was injected at rest. 0.4 mg of regadenoson was infused per usual protocol. At peak infusion 44.1 mCi of technetium 99m sestamibi was injected stress images were obtained stress and rest images were reconstructed and compared in the short axis vertical long and horizontal long axis. Gated images were also obtained for Perfusion SPECT analysis: Review of the stress images demonstrate a medium to large size defect noted in the mid to distal anterior wall apex and inferoapical wall. The septum, inferior wall and lateral wall appeared to be well perfused. The resting images demonstrate a similar pattern noted on the anterior wall and apex suggestive of a previous anterior apical infarct. No reversibility is noted to suggest ischemia. Gated SPECT analysis: The gated ejection fraction is 55% with apical hypokinesis. Conclusion: Pharmacologic myocardial perfusion stress test with evidence of anterior apical infarct. Mild cardiomyopathy present. No ischemia present.
== END ==
PROVIDERS: PCP Family Medicine; Referring Provider Physician Assistant Medical; Visit Provider Physician Assistant Medical
DX: I25.119 Atherosclerotic heart disease of native coronary artery with unspecified angina pectoris (principal); I25.5 Ischemic cardiomyopathy; R06.02 Shortness of breath
CPT/HCPCS: 78452; 93017; 93306; A9500; Q9957; A4216; C8929; J2785